=== PATIENT | female | born 1940 | race Caucasian/White ===

== ENCOUNTER 2016-12-12 12:00 | Emergency (ER) | payer OTHER ==
[2016-12-12 12:04] VITALS: BMI 22.8
--- NOTE | 2016-12-12 12:14 | DR.CP ---
HPI - Time Seen Time seen: 12:14 - PCP Primary Care Physician: EFRAIN - Complaint Chief Complaint Doctor Comments: Patient admits to the ED with complaint of intermittent left sided chest pain for 3-4 days with a pain level of 3-4. She also admits to epigastric pain burning in nature radiating to the back for one week. She denies any diaphoresis or dyspnea. She admits to four vessel by pass surgery twenty years ago. Her physical stamina has not changed. Chief Complaint:: INTERMITTENT CHEST PAIN X 3 DAYS BUT PAIN HAS BEEN CONSTANT SINCE LAST NIGHT. PT. STATES THE PAIN IS ON THE LEFT SIDE OF THE CHEST AND RADIATES THROUGH TO BACK, UNDER LEFT ARM, AND DOWN LEFT ARM. - Source History Provided: Patient - Mode of Arrival Mode of Arrival: Ambulatory - Timing Onset of Chief Complaint: 12/09/16 PMH - PMH Past Medical History: Yes Past Medical History: Coronary Artery Disease, Hypertension Past Surgical History: Yes Surgical History: CABG/Valve Surgery, Hysterectomy, Ortho Surgery, Other Past Surgical History Comment: RIGHT BREAST X 3 - Family History History of Family Medical Conditions: No - Social History Does patient currently use any type of tobacco product: No Have you used tobacco products in the last 12 months: No Type of Tobacco Use: None Does any household member use tobacco: No Alcohol Use: None Do you use any recreational Drugs:: No Lives With: Spouse Lives Where: Home - infectious screening In the last 2 months have you had wt loss of >10#?: NO Have you had fever, night sweats or hemotysis?: No Have you traveled outside the country in the last 6 months?: No Isolation: Standard ROS - Review of Systems Constitutional: No Symptoms Reported Eyes: No Symptoms Reported ENTM: No Symptoms Reported Respiratoy: No Symptoms Reported Cardiovascular: Chest Pain (lest side w/o radiating ) Gastrointestinal/Abdominal: No Symptoms Reported Genitourinary: No Symptoms Reported Neurological: No Symptoms Reported Musculoskeletal: No Symptoms Reported Integumentary: No Symptoms Reported Hematologic/Lymphatic: No Symptoms Reported Endocrine: No Symptoms Reported Psychiatric: No Symptoms Reported All Other Systems: Reviewed and Negative PE - Vitals Vitals: Temperature 98.8 F Pulse Rate 59 Respiratory Rate 16 Blood Pressure 159/69 O2 Sat by Pulse Oximetry 98 - General Limitations: No Limitations General Appearance: Alert, In No Apparent Distress - Head Head Exam: Normal Inspection, Atraumatic - Eyes Eye exam: Normal Appearance, PERRL, EOMI - ENT ENT Exam: Normal Exam, Normal Oropharynx - Chest Chest Inspection: Normal Inspection, Symmetric Chest Wall Rise - Respiratory Respiratory Exam: Normal Lung Sounds Bilat Respiratory Exam: Bilateral Clear to Auscultation - Cardiovascular Cardiovascular Exam: Regular Rate, Bradycardia Pulse: Normal, Radial, Femoral Edema: Normal - Abdominal Exam Abdominal Exam: Normal Inspection Abdominal Tenderness: negative: RUQ, RLQ, LUQ, LLQ, Epigastrium, Suprapubic, Diffuse, Mild, Moderate, Severe, Other - Extremities Extremities Exam: Normal Inspection, Full ROM - Neurologic Neurological Exam: Alert, Oriented X3, CN II-XII Intact - Psychiatric Psychiatric Exam: Normal Affect, Normal Mood - Skin Skin Exam: Warm, Dry, Intact Course - Reevaluation 1st: Unchanged ROR - Labs Reviewed Result Diagrams: 12/12/16 12:36 12/12/16 12:36 Laboratory: WBC 4.5 X10^3/uL (3.6-10.0) 12/12/16 12:36 RBC 4.19 X10^6/uL (3.5-5.4) 12/12/16 12:36 Hgb 12.8 g/dL (12.0-16.0) 12/12/16 12:36 Hct 38.7 % (36.0-47.0) 12/12/16 12:36 MCV 92.4 fL (80.0-100.0) 12/12/16 12:36 MCH 30.5 pg (27.0-34.0) 12/12/16 12:36 MCHC 33.0 g/dL (33.0-35.0) 12/12/16 12:36 RDW 13.3 % (11.6-16.5) 12/12/16 12:36 Plt Count 185 X10^3/uL (150.0-450.0) 12/12/16 12:36 MPV 7.1 fL (7.4-11.0) L 12/12/16 12:36 Neut % 56.9 % (42.0-75.0) 12/12/16 12:36 Lymph % 26.2 % (21.0-51.0) 12/12/16 12:36 [place] % 12.1 % (0.0-13.0) 12/12/16 12:36 Eos % 4.1 % (0.9-2.9) H 12/12/16 12:36 Baso % 0.7 % (0.2-1.0) 12/12/16 12:36 Neut # 2.6 x10^3/uL (2.2-4.8) 12/12/16 12:36 Lymph # 1.2 X10^3/uL (1.3-2.9) L 12/12/16 12:36 [place] # 0.5 x10^3/uL (0.3-0.8) 12/12/16 12:36 Eos # 0.2 x10^3/uL (0.0-0.2) 12/12/16 12:36 Baso # 0.0 X10^3/uL (0.0-0.1) 12/12/16 12:36 Absolute Nucleated RBC 0.0 /100WBC 12/12/16 12:36 INR Target Range - 12/12/16 12:36 INR 1.00 (0.8-1.3) 12/12/16 12:36 PTT 27.9 SECONDS (22.9-36.5) 12/12/16 12:36 PTT Comment - 12/12/16 12:36 Sodium 143 mmol/L (136-145) 12/12/16 12:36 Corrected Sodium TNP 12/12/16 12:36 Potassium 4.1 mmol/L (3.5-5.1) 12/12/16 12:36 Chloride 108 mmol/L (98-107) H 12/12/16 12:36 Carbon Dioxide 28.0 mmol/L (21-32) 12/12/16 12:36 BUN 13 mg/dL (7-18) 12/12/16 12:36 Creatinine 1.10 mg/dL (0.55-1.02) H 12/12/16 12:36 Est GFR (MDRD) Af Amer > 60 (>60) 12/12/16 12:36 Est GFR (MDRD) Non-Af 51 (>60) L 12/12/16 12:36 Glucose 93 mg/dL (65-99) 12/12/16 12:36 Calcium 8.8 mg/dL (8.5-10.1) 12/12/16 12:36 Corrected Calcium TNP 12/12/16 12:36 Phosphorus 4.1 mg/dL (2.6-4.7) 12/12/16 12:36 Magnesium 1.9 mg/dL (1.7-2.9) 12/12/16 12:36 Total Bilirubin 0.20 mg/dL (0.2-1.0) 12/12/16 12:36 AST 21 Units/L (15-37) 12/12/16 12:36 ALT 27 Units/L (12-78) 12/12/16 12:36 Alkaline Phosphatase 63 Units/L (46-116) 12/12/16 12:36 Creatine Kinase 117 Units/L (26-192) 12/12/16 12:36 CK-MB (CK-2) 2.2 ng/mL (0-4.0) 12/12/16 12:36 CK/CKMB % Calc 1.9 % (<4) 12/12/16 12:36 Troponin I < 0.02 ng/mL (0-1.5) 12/12/16 12:36 Total Protein 7.3 g/dL (6.4-8.2) 12/12/16 12:36 Albumin 3.7 g/dL (3.4-5.0) 12/12/16 12:36 Globulin 3.6 g/dL (2.5-4.5) 12/12/16 12:36 Albumin/Globulin Ratio 1.0 Ratio (1.1-2.1) L 12/12/16 12:36 Amylase 44 Units/L (25-115) 12/12/16 12:36 Lipase 209 Units/L (73-393) 12/12/16 12:36 H. pylori IgG Antibody Negative (NEGATIVE) 12/12/16 12:36 - XRAY XRAY Interpreted by: Radiologist (No acute cardiopulmonary abnormality) - Diagnosis Discharge Problem: Chest pain, rule out acute myocardial infarction - Discharge Plan Condition: Stable - Follow ups/Referrals Follow ups/Referrals: Bolivar Sykes [Primary Care Provider] - 3 days - Instructions
--- NOTE | 2016-12-12 12:39 | RAD ---
HISTORY: Chest pain Study: Single view chest Comparison: Noted Findings: Sternotomy changes are noted. There are calcifications at the aortic knob. The lungs are clear witho ut consolidation, effusion or pneumothorax. The cardiac and mediastinal contours are within normal l imits. The soft tissues are unremarkable. IMPRESSION: 1. No acute cardiopulmonary abnormality. Reported By:
[2016-12-12 12:43] LABS: BASOPHILS % (AUTO) 0.7 % (0.2-1.0); EOSINOPHILS # (AUTO) 0.2 x10^3/uL (0.0-0.2); EOSINOPHILS % (AUTO) 4.1 % (0.9-2.9); HEMATOCRIT 38.7 % (36.0-47.0); HEMOGLOBIN 12.8 g/dL (12.0-16.0); LYMPHOCYTES # (AUTO) 1.2 X10^3/uL (1.3-2.9); LYMPHOCYTES % (AUTO) 26.2 % (21.0-51.0); MEAN CORPUSCULAR HEMOGLOBIN 30.5 pg (27.0-34.0); MEAN CORPUSCULAR VOLUME 92.4 fL (80.0-100.0); MEAN PLATELET VOLUME 7.1 fL (7.4-11.0); MONOCYTES # (AUTO) 0.5 x10^3/uL (0.3-0.8); MONOCYTES % (AUTO) 12.1 % (0.0-13.0); NEUTROPHILS # (AUTO) 2.6 x10^3/uL (2.2-4.8); NEUTROPHILS % (AUTO) 56.9 % (42.0-75.0); PLATELET COUNT 185 X10^3/uL (150.0-450.0); RED BLOOD COUNT 4.19 X10^6/uL (3.5-5.4); RED CELL DISTRIBUTION WIDTH 13.3 % (11.6-16.5); WHITE BLOOD COUNT 4.5 X10^3/uL (3.6-10.0)
[2016-12-12 12:58] LABS: BLOOD UREA NITROGEN 13 mg/dL (7-18); CALCIUM 8.8 mg/dL (8.5-10.1); CHLORIDE 108 mmol/L (98-107); GLUCOSE 93 mg/dL (65-99); SODIUM 143 mmol/L (136-145); TROPONIN I < 0.02 ng/mL (0-1.5); eGFR BLACK RACES > 60 (>60); eGFR NON BLACK RACES 51 (>60)
[2016-12-12] MEDS ORDERED: NS 1000 ML 1,000 ML IV SCH (13:00)
[2016-12-12 13:04] LABS: ALANINE AMINOTRANSFERASE 27 Units/L (12-78); ALBUMIN 3.7 g/dL (3.4-5.0); ALKALINE PHOSPHATASE 63 Units/L (46-116); AMYLASE 44 Units/L (25-115); ASPARTATE AMINO TRANSFERASE 21 Units/L (15-37); CKMB % 1.9 % (<4); CREATINE KINASE 117 Units/L (26-192); CREATINE KINASE MB 2.2 ng/mL (0-4.0); LIPASE 209 Units/L (73-393); MAGNESIUM 1.9 mg/dL (1.7-2.9); PHOSPHORUS 4.1 mg/dL (2.6-4.7); TOTAL PROTEIN 7.3 g/dL (6.4-8.2)
[2016-12-12 13:16] LABS: BILIRUBIN,URINE NEGATIVE (NEGATIVE); BLOOD/HEMOGLOBIN,URINE NEGATIVE (NEGATIVE); GLUCOSE, URINE NEGATIVE (NEGATIVE); KETONES,URINE NEGATIVE (NEGATIVE); LEUKOCYTE ESTERASE ,URINE NEGATIVE (NEGATIVE); NITRITES,URINE NEGATIVE (NEGATIVE); PROTEIN,URINE NEGATIVE (NEGATIVE); UROBILINOGEN,URINE NORMAL (NORMAL)
[2016-12-12 13:25] LABS: APPEARANCE,URINE CLEAR (CLEAR); BACTERIA,URINE NEGATIVE /HPF (NEGATIVE); COLOR,URINE YELLOW (YELLOW); RBC,URINE 0-2 /HPF (NEGATIVE); SQUAMOUS EPITHELIAL CELL,UR RARE /HPF (NEGATIVE)
[2016-12-12] MEDS ORDERED: MORPHINE SULFATE INJ 4 MG IVP PRN (14:23)
[2016-12-12] MEDS ORDERED: ZOFRAN INJ 4 MG VIAL IVP PRN (14:23)
[2016-12-12] MEDS: NS 1000 ML 1,000 ML IV SCH (15:25)
[2016-12-12] MEDS: LOTENSIN TAB 10 MG PO SCH (15:26)
[2016-12-12] MEDS: NORVASC TAB 5 MG PO SCH (15:26)
[2016-12-12 18:13] LABS: CKMB % 1.8 % (<4); CREATINE KINASE 121 Units/L (26-192); CREATINE KINASE MB 2.2 ng/mL (0-4.0); TROPONIN I < 0.02 ng/mL (0-1.5)
[2016-12-13 01:16] LABS: CKMB % 1.9 % (<4); CREATINE KINASE 100 Units/L (26-192); CREATINE KINASE MB 1.9 ng/mL (0-4.0); TROPONIN I < 0.02 ng/mL (0-1.5)
[2016-12-13] MEDS: NS 1000 ML 1,000 ML IV SCH ×2 (04:08→18:07)
[2016-12-13 06:31] LABS: BASOPHILS % (AUTO) 0.7 % (0.2-1.0); EOSINOPHILS # (AUTO) 0.2 x10^3/uL (0.0-0.2); EOSINOPHILS % (AUTO) 5.1 % (0.9-2.9); HEMATOCRIT 37.2 % (36.0-47.0); HEMOGLOBIN 12.5 g/dL (12.0-16.0); LYMPHOCYTES # (AUTO) 1.5 X10^3/uL (1.3-2.9); LYMPHOCYTES % (AUTO) 34.7 % (21.0-51.0); MEAN CORPUSCULAR HEMOGLOBIN 30.6 pg (27.0-34.0); MEAN CORPUSCULAR HGB CONC 33.7 g/dL (33.0-35.0); MEAN CORPUSCULAR VOLUME 90.9 fL (80.0-100.0); MEAN PLATELET VOLUME 7.6 fL (7.4-11.0); MONOCYTES # (AUTO) 0.5 x10^3/uL (0.3-0.8); MONOCYTES % (AUTO) 12.1 % (0.0-13.0); NEUTROPHILS # (AUTO) 2.1 x10^3/uL (2.2-4.8); NEUTROPHILS % (AUTO) 47.4 % (42.0-75.0); PLATELET COUNT 181 X10^3/uL (150.0-450.0); RED BLOOD COUNT 4.09 X10^6/uL (3.5-5.4); RED CELL DISTRIBUTION WIDTH 13.4 % (11.6-16.5); WHITE BLOOD COUNT 4.4 X10^3/uL (3.6-10.0)
[2016-12-13 06:47] LABS: ALANINE AMINOTRANSFERASE 25 Units/L (12-78); ALBUMIN 3.5 g/dL (3.4-5.0); ALKALINE PHOSPHATASE 58 Units/L (46-116); ASPARTATE AMINO TRANSFERASE 23 Units/L (15-37); BLOOD UREA NITROGEN 13 mg/dL (7-18); CALCIUM 8.6 mg/dL (8.5-10.1); CARBON DIOXIDE 24.8 mmol/L (21-32); CHLORIDE 108 mmol/L (98-107); CHOL/HDL RATIO 7.9 (0.0-5.0); CHOLESTEROL 307 mg/dL (0-200); CREATININE 0.88 mg/dL (0.55-1.02); GLUCOSE 77 mg/dL (65-99); HDL CHOLESTEROL 39 mg/dL (40-60); SODIUM 144 mmol/L (136-145); TOTAL PROTEIN 6.7 g/dL (6.4-8.2); TRIGLYCERIDES 187 mg/dL (0-150); eGFR BLACK RACES > 60 (>60); eGFR NON BLACK RACES > 60 (>60)
--- NOTE | 2016-12-13 07:58 | RAD ---
Chest AP portable Indication: Chest pain. Comparison: December 12, 2016. Findings: There is no pneumothorax or effusion. No consolidation seen. Sternotomy wires noted. COPD suggested. Impression: No new acute chest process. COPD change and post CABG change. Reported By:
[2016-12-13] MEDS ORDERED: [UNRECOGNIZED DRUG - OTHER] PO SCH (09:00)
[2016-12-13] MEDS: EFFEXOR TAB 75 MG (BID DOSING) PO SCH (09:08)
[2016-12-13] MEDS: KLONOPIN TAB 1 MG PO SCH (09:08)
[2016-12-13] MEDS: NORVASC TAB 5 MG PO SCH (09:09)
[2016-12-13] MEDS: MYSOLINE PO SCH (09:09)
[2016-12-13] MEDS: LOTENSIN TAB 10 MG PO SCH (09:09)
[2016-12-13] MEDS ORDERED: TYLENOL 325 MG TAB PO PRN (10:25)
[2016-12-13 13:52] LABS: CKMB % 1.8 % (<4); CREATINE KINASE 88 Units/L (26-192); CREATINE KINASE MB 1.6 ng/mL (0-4.0); TROPONIN I < 0.02 ng/mL (0-1.5)
--- NOTE | 2016-12-13 19:06 | DR.H&P ---
H&P - History & Physical for Day of: H&P Date: 12/12/16 - Chief Complaint Chief Complaint: CHEST PAIN - Allergies Allergies/Adverse Reactions: Allergies Allergy/AdvReac Type Severity Reaction Status Date / Time No Known Drug Allergy Allergy Verified 12/12/16 12:06 - History of Present Illness History of Present Illness: THIS IS A 76 YEAR OLD FEMALE, WHO IS A PATIENT OF OURS. SHE PRESENTS TO THE EMERGENCY ROOM WITH COMPLAINTS OF LEFT-SIDED CHEST PAIN FOR 3-4 DAYS. PATIENT REPORTS PAIN IS CONSTANT AND SHE RATES PAIN A 3-4 ON A 1-TO-10 PAIN SCALE. SHE REPORTS EPIGASTRIC PAIN WITH BURNING SENSATION RADIATING TO HER BACK AND LEFT ARM. SHE DENIES DIAPHORESIS OR DYSPNEA. SHE REPORTS QUADRUPLE BYPASS TWENTY YEARS AGO. LABS OBTAINED. CBC WNL. CMP WNL EXCEPT: CHL 108, CREAT 1.10, GFR 51. CARDIAC ENZYMES WNL. EKG: SINUS RHYTHM, RATE 57. CHEST XRAY REPORTS NO ACUTE CARIOPULMONARY ABNORMALITY. WE WILL ADMIT PATIENT FOR FURTHER TREATMENT AND EVALUATION. WE WILL MONITOR PATIENT ON TELEMETRY, OBTAIN SERIAL CARDIAC ENZYMES AND EKG'S. - Past Medical History Past Medical History: Coronary Artery Disease, Hypertension, Hypothyroidism, [place] Additional Medical History: Previous Blood Transfusion - Past Surgical History Surgical History: CABG/Valve Surgery, Hysterectomy, Ortho Surgery Additional Surgical History: QUADRUPLE BYPASS - Family History Family Medical History: Cancer - Social History Does patient currently use any type of tobacco product: No Have you used tobacco products in the last 12 months: No Type of Tobacco Use: None Does any household member use tobacco: No Alcohol Use: None Drug Use: None - Medications Home Medications: Amlodipine Besylate-Benazepril [Amlodipine Besylate/Benaz 5-20 mg] 1 cap PO DAILY 11/02/13 Clonazepam [KLONOPIN TAB 1 MG *] 1 mg PO DAILY 11/02/13 Labetalol HCl [NORMODYNE 200 MG *] 200 mg PO BID 11/02/13 Primidone [MYSOLINE 50 MG *] 50 mg PO DAILY 11/02/13 Venlafaxine HCl [Venlafaxine HCl (plain)] 75 mg PO DAILY 11/02/13 - Review of Systems Constitutional: Weakness, Malaise Eyes: No Symptoms Reported. denies: Pain, Vision Change, Conjunctivae Inflammation, Eyelid Inflammation, Redness ENT: No Symptoms Reported. denies: Ear Pain, Ear Discharge, Nose Pain, Nose Discharge, Nose Congestion, Mouth Pain, Mouth Swelling, Throat Pain, Throat Swelling Respiratory: No Symptoms Reported. denies: Cough, Shortness of Breath, Hemoptysis, SOB with Excertion, Pleuritic Pain, Sputum, Wheezing Cardiovascular: Chest Pain. denies: Palpitations, Orthopnea, Paroxysmal Noc. Dyspnea, Edema, Light Headedness Gastrointestinal: No Symptoms Reported. denies: Nausea, Vomiting, Abdominal Pain, Diarrhea, Constipation, Melena, Hematochezia Genitourinary: No Symptoms Reported. denies: Dysuria, Frequency, Incontinence, Hematuria, Retention Musculoskeletal: Shoulder Pain (Left), Arm Pain (Left), Back Pain Skin: No Symptoms Reported. denies: Rash, Lesions, Jaundice, Bruising, Wound, Ecchymosis Neurological: No Symptoms Reported. denies: Weakness, Numbness, Incoordination , Change in Speech, Confusion, Seizures - Physical Exam Vital Signs: Temperature 98.2 F Pulse Rate [Right Brachial] 57 Respiratory Rate 18 Blood Pressure [Right Arm] 137/60 O2 Sat by Pulse Oximetry 93 Oriented: Normal, Time, Person, Place Eyes: Normal. negative: Blurred Vision, Diplopia, Discharge, Pain, Redness, Photophobia Ear: Normal. negative: Swelling, Ecchymosis, Hemotypanum, Abrasion, Laceration Nose: Normal. negative: Injected, Discharge, Blood Throat: Normal. negative: Tonsillar Hypertrophy, Red, Exudate Respiratory: Clear Throughout Cardiovascular: Normal. negative: Murmur, Edema : Normal. negative: Dysuria, Hematuria, Frequency, Discharge, Bleeding, Auscultation: Bowel Sounds: Normal. negative: Bruit Palpation: Normal. negative: Spleen Enlarged, Liver Enlarged, Mass Pulsatile Tenderness: Normal. negative: Rebound, Guarding, Rigidity Skin: Normal. negative: Diaphoresis, Wound, Bruising, Ecchymosis Musculoskeletal: Normal Psychiatric: Normal Mood Description: Calm, Appropriate Affect: Normal Speech Pattern: Clear, Appropriate - Assessment/Plan (1) Chest pain, rule out acute myocardial infarction Status: Acute Plan: ADMIT PATIENT, MONITOR ON TELEMETRY, OBTAIN SERIAL CARDIAC ENZYMES AND EKG 'S, SUPPLEMENTAL OXYGEN. 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
[2016-12-13 20:10] LABS: CKMB % 2.3 % (<4); CREATINE KINASE 78 Units/L (26-192); CREATINE KINASE MB 1.8 ng/mL (0-4.0); TROPONIN I < 0.02 ng/mL (0-1.5)
--- NOTE | 2016-12-13 22:46 | PCM.PROG ---
Progress Note - Progress Note for Day of Date: 12/13/16 - Subjective Subjective: PATIENT CONTINUES TO REPORT CHEST DISCOMFORT THAT RADIATES TO LEFT ARM AND BACK. PATIENT REPORTS CHEST PAIN IS WORSE WITH DEEP INSPIRATION. SHE WAS NOTED WITH BRADYCARDIA ON ADMISSION AND SHE REPORTS HEART RATE IS CHRONICALLY IN THE 50'S. LABETALOL HAS BEEN HELD. BLOOD PRESSURE IS 142/67, PULSE 51. PATIENT DENIES SHORTNESS OF BREATH, DIZZINESS, FATIGUE. CBC WNL. CMP WNL EXCEPT: CHL 108. CARDIAC ENZYMES WNL. EKG: SINUS RHYTHM, RATE 55. FLP ABNORMALS: TRIGLYCERIDES 187, CHOL 307, LDL CHOL 231, CHOL/HDL RATIO 7.9. WE WILL CONTINUE TO MONITOR ON TELEMETRY, CONTINUE CARDIAC ENZYMES AND EKG'S. WE WILL FOLLOW UP IN AM WITH LABS. - Past Medical Family Social History Past Med/Fam/Surg Hx: No changes since H&P Allergies: Allergies No Known Drug Allergy Allergy (Verified 12/12/16 12:06) - Review of Systems ROS: No change since H&P - Vital Signs and I&O's Vital Signs: Temperature 98.2 F Pulse Rate [Right Brachial] 57 Respiratory Rate 18 Blood Pressure [Right Arm] 137/60 O2 Sat by Pulse Oximetry 93 Intake and Output: Intake & Output 12/11/16 12/12/16 12/13/16 12/14/16 11:59 11:59 11:59 11:59 Intake Total 1339 1080 Balance 1339 1080 - Physical Exam Oriented: Normal, Time, Person, Place Eyes: Normal. negative: Blurred Vision, Diplopia, Discharge, Pain, Redness, Photophobia Ear: Normal. negative: Swelling, Ecchymosis, Hemotypanum, Abrasion, Laceration Nose: Normal. negative: Injected, Discharge, Blood Throat: Normal. negative: Tonsillar Hypertrophy, Red, Exudate Respiratory: Normal Cardiovascular: Normal. negative: Murmur, Edema : Normal. negative: Dysuria, Hematuria, Frequency, Discharge, Bleeding, Auscultation: Bowel Sounds: Normal. negative: Bruit Palpation: Normal. negative: Spleen Enlarged, Liver Enlarged, Mass Pulsatile Tenderness: Normal. negative: Rebound, Guarding, Rigidity Skin: Normal. negative: Diaphoresis, Wound, Bruising, Ecchymosis Musculoskeletal: Normal Psychiatric: Normal Mood Description: Calm, Appropriate Affect: Normal Speech Pattern: Clear, Appropriate - Laboratory and Diagnostics Result Diagrams: 12/13/16 03:30 12/13/16 03:30 Labs: Laboratory WBC 4.4 X10^3/uL (3.6-10.0) 12/13/16 03:30 RBC 4.09 X10^6/uL (3.5-5.4) 12/13/16 03:30 Hgb 12.5 g/dL (12.0-16.0) 12/13/16 03:30 Hct 37.2 % (36.0-47.0) 12/13/16 03:30 MCV 90.9 fL (80.0-100.0) 12/13/16 03:30 MCH 30.6 pg (27.0-34.0) 12/13/16 03:30 MCHC 33.7 g/dL (33.0-35.0) 12/13/16 03:30 RDW 13.4 % (11.6-16.5) 12/13/16 03:30 Plt Count 181 X10^3/uL (150.0-450.0) 12/13/16 03:30 MPV 7.6 fL (7.4-11.0) 12/13/16 03:30 Neut % 47.4 % (42.0-75.0) 12/13/16 03:30 Lymph % 34.7 % (21.0-51.0) 12/13/16 03:30 [place] % 12.1 % (0.0-13.0) 12/13/16 03:30 Eos % 5.1 % (0.9-2.9) H 12/13/16 03:30 Baso % 0.7 % (0.2-1.0) 12/13/16 03:30 Neut # 2.1 x10^3/uL (2.2-4.8) L 12/13/16 03:30 Lymph # 1.5 X10^3/uL (1.3-2.9) 12/13/16 03:30 [place] # 0.5 x10^3/uL (0.3-0.8) 12/13/16 03:30 Eos # 0.2 x10^3/uL (0.0-0.2) 12/13/16 03:30 Baso # 0.0 X10^3/uL (0.0-0.1) 12/13/16 03:30 Absolute Nucleated RBC 0.0 /100WBC 12/13/16 03:30 INR Target Range - 12/12/16 12:36 INR 1.00 (0.8-1.3) 12/12/16 12:36 PTT 27.9 SECONDS (22.9-36.5) 12/12/16 12:36 PTT Comment - 12/12/16 12:36 Sodium 144 mmol/L (136-145) 12/13/16 03:30 Corrected Sodium TNP 12/13/16 03:30 Potassium 3.7 mmol/L (3.5-5.1) 12/13/16 03:30 Chloride 108 mmol/L (98-107) H 12/13/16 03:30 Carbon Dioxide 24.8 mmol/L (21-32) 12/13/16 03:30 BUN 13 mg/dL (7-18) 12/13/16 03:30 Creatinine 0.88 mg/dL (0.55-1.02) 12/13/16 03:30 Est GFR (MDRD) Af Amer > 60 (>60) 12/13/16 03:30 Est GFR (MDRD) Non-Af > 60 (>60) 12/13/16 03:30 Glucose 77 mg/dL (65-99) 12/13/16 03:30 Calcium 8.6 mg/dL (8.5-10.1) 12/13/16 03:30 Corrected Calcium TNP 12/13/16 03:30 Phosphorus 4.1 mg/dL (2.6-4.7) 12/12/16 12:36 Magnesium 1.9 mg/dL (1.7-2.9) 12/12/16 12:36 Total Bilirubin 0.20 mg/dL (0.2-1.0) 12/13/16 03:30 AST 23 Units/L (15-37) 12/13/16 03:30 ALT 25 Units/L (12-78) 12/13/16 03:30 Alkaline Phosphatase 58 Units/L (46-116) 12/13/16 03:30 Creatine Kinase 78 Units/L (26-192) 12/13/16 19:15 CK-MB (CK-2) 1.8 ng/mL (0-4.0) 12/13/16 19:15 CK/CKMB % Calc 2.3 % (<4) 12/13/16 19:15 Troponin I < 0.02 ng/mL (0-1.5) 12/13/16 19:15 Total Protein 6.7 g/dL (6.4-8.2) 12/13/16 03:30 Albumin 3.5 g/dL (3.4-5.0) 12/13/16 03:30 Globulin 3.2 g/dL (2.5-4.5) 12/13/16 03:30 Albumin/Globulin Ratio 1.1 Ratio (1.1-2.1) 12/13/16 03:30 Triglycerides 187 mg/dL (0-150) H 12/13/16 03:30 Cholesterol 307 mg/dL (0-200) H 12/13/16 03:30 LDL Cholesterol, Calc 231 mg/dL (0-100) H 12/13/16 03:30 HDL Cholesterol 39 mg/dL (40-60) L 12/13/16 03:30 Cholesterol/HDL Ratio 7.9 (0.0-5.0) H 12/13/16 03:30 Amylase 44 Units/L (25-115) 12/12/16 12:36 Lipase 209 Units/L (73-393) 12/12/16 12:36 Specimen Type Clean catch urine 12/12/16 13:02 Urine Color Yellow (YELLOW) 12/12/16 13:02 Urine Appearance Clear (CLEAR) 12/12/16 13:02 Urine pH 6.0 (5.0 - 8.0) 12/12/16 13:02 Ur Specific [place] 1.010 (1.000-1.030) 12/12/16 13:02 Urine Protein Negative (NEGATIVE) 12/12/16 13:02 Urine Glucose (UA) Negative (NEGATIVE) 12/12/16 13:02 Urine Ketones Negative (NEGATIVE) 12/12/16 13:02 Urine Occult Blood Negative (NEGATIVE) 12/12/16 13:02 Urine Nitrite Negative (NEGATIVE) 12/12/16 13:02 Urine Bilirubin Negative (NEGATIVE) 12/12/16 13:02 Urine Urobilinogen Normal (NORMAL) 12/12/16 13:02 Ur Leukocyte Esterase Negative (NEGATIVE) 12/12/16 13:02 Urine RBC 0-2 /HPF (NEGATIVE) 12/12/16 13:02 Urine WBC 0-3 /HPF (NEGATIVE) 12/12/16 13:02 Ur Squamous Epith Cells Rare /HPF (NEGATIVE) 12/12/16 13:02 Urine Bacteria Negative /HPF (NEGATIVE) 12/12/16 13:02 Ur Culture Indicated? No/not indicated 12/12/16 13:02 H. pylori IgG Antibody Negative (NEGATIVE) 12/12/16 12:36 - Plan (1) Chest pain, rule out acute myocardial infarction Status: Acute Plan: CONTINUE TO MONITOR ON TELEMETRY, OBTAIN SERIAL CARDIAC ENZYMES AND EKG'S , SUPPLEMENTAL OXYGEN. (2) History of angina Status: Chronic (3) History of quadruple bypass Status: Chronic (4) Hx of myocardial infarction Status: Chronic (5) Hypothyroidism Status: Chronic Qualifiers: Hypothyroidism type: acquired Qualified Code(s): E03.9 - Hypothyroidism, unspecified (6) Hx of bilateral cataract extraction Status: Chronic
[2016-12-14 01:29] LABS: CKMB % 1.9 % (<4); CREATINE KINASE 78 Units/L (26-192); CREATINE KINASE MB 1.5 ng/mL (0-4.0); TROPONIN I < 0.02 ng/mL (0-1.5)
[2016-12-14] MEDS: NS 1000 ML 1,000 ML IV SCH ×2 (05:26→21:29)
[2016-12-14 06:22] LABS: ALANINE AMINOTRANSFERASE 24 Units/L (12-78); ALBUMIN 3.2 g/dL (3.4-5.0); ALKALINE PHOSPHATASE 54 Units/L (46-116); ASPARTATE AMINO TRANSFERASE 19 Units/L (15-37); BLOOD UREA NITROGEN 13 mg/dL (7-18); CALCIUM 8.5 mg/dL (8.5-10.1); CARBON DIOXIDE 28.4 mmol/L (21-32); CHLORIDE 108 mmol/L (98-107); COR CA(FOR HYPOALB) 9.1 mg/dL (8.5-10.1); CREATININE 0.93 mg/dL (0.55-1.02); GLUCOSE 84 mg/dL (65-99); SODIUM 144 mmol/L (136-145); TOTAL PROTEIN 6.2 g/dL (6.4-8.2); eGFR BLACK RACES > 60 (>60); eGFR NON BLACK RACES > 60 (>60)
[2016-12-14 06:23] LABS: BASOPHILS % (AUTO) 0.7 % (0.2-1.0); EOSINOPHILS # (AUTO) 0.2 x10^3/uL (0.0-0.2); EOSINOPHILS % (AUTO) 4.1 % (0.9-2.9); HEMATOCRIT 36.3 % (36.0-47.0); HEMOGLOBIN 12.5 g/dL (12.0-16.0); LYMPHOCYTES # (AUTO) 1.5 X10^3/uL (1.3-2.9); MEAN CORPUSCULAR HEMOGLOBIN 31.2 pg (27.0-34.0); MEAN CORPUSCULAR HGB CONC 34.4 g/dL (33.0-35.0); MEAN CORPUSCULAR VOLUME 90.9 fL (80.0-100.0); MEAN PLATELET VOLUME 7.3 fL (7.4-11.0); MONOCYTES # (AUTO) 0.6 x10^3/uL (0.3-0.8); NEUTROPHILS # (AUTO) 2.1 x10^3/uL (2.2-4.8); NEUTROPHILS % (AUTO) 47.2 % (42.0-75.0); PLATELET COUNT 173 X10^3/uL (150.0-450.0); RED CELL DISTRIBUTION WIDTH 13.2 % (11.6-16.5); WHITE BLOOD COUNT 4.4 X10^3/uL (3.6-10.0)
[2016-12-14] MEDS: EFFEXOR TAB 75 MG (BID DOSING) PO SCH (09:39)
[2016-12-14] MEDS: MYSOLINE PO SCH (10:44)
[2016-12-14] MEDS: LOTENSIN TAB 10 MG PO SCH (10:44)
[2016-12-14] MEDS: KLONOPIN TAB 1 MG PO SCH (10:45)
[2016-12-14] MEDS: NORVASC TAB 5 MG PO SCH (10:45)
[2016-12-14] MEDS ORDERED: CRESTOR TAB 10 MG PO SCH (21:00)
[2016-12-14] MEDS: ASPIRIN EC 81 MG PO SCH (21:28)
[2016-12-15 06:25] LABS: ALANINE AMINOTRANSFERASE 23 Units/L (12-78); ALBUMIN 3.3 g/dL (3.4-5.0); ALKALINE PHOSPHATASE 55 Units/L (46-116); ASPARTATE AMINO TRANSFERASE 20 Units/L (15-37); BLOOD UREA NITROGEN 11 mg/dL (7-18); CALCIUM 8.7 mg/dL (8.5-10.1); CARBON DIOXIDE 26.6 mmol/L (21-32); CHLORIDE 109 mmol/L (98-107); COR CA(FOR HYPOALB) 9.3 mg/dL (8.5-10.1); CREATININE 0.89 mg/dL (0.55-1.02); GLUCOSE 82 mg/dL (65-99); SODIUM 143 mmol/L (136-145); TOTAL PROTEIN 6.4 g/dL (6.4-8.2); eGFR BLACK RACES > 60 (>60); eGFR NON BLACK RACES > 60 (>60)
[2016-12-15 06:53] LABS: BASOPHILS % (AUTO) 0.8 % (0.2-1.0); EOSINOPHILS # (AUTO) 0.2 x10^3/uL (0.0-0.2); EOSINOPHILS % (AUTO) 4.7 % (0.9-2.9); HEMATOCRIT 36.7 % (36.0-47.0); HEMOGLOBIN 12.2 g/dL (12.0-16.0); LYMPHOCYTES # (AUTO) 1.6 X10^3/uL (1.3-2.9); LYMPHOCYTES % (AUTO) 33.6 % (21.0-51.0); MEAN CORPUSCULAR HEMOGLOBIN 30.6 pg (27.0-34.0); MEAN CORPUSCULAR HGB CONC 33.3 g/dL (33.0-35.0); MEAN CORPUSCULAR VOLUME 91.9 fL (80.0-100.0); MEAN PLATELET VOLUME 7.8 fL (7.4-11.0); MONOCYTES # (AUTO) 0.7 x10^3/uL (0.3-0.8); MONOCYTES % (AUTO) 14.1 % (0.0-13.0); NEUTROPHILS # (AUTO) 2.3 x10^3/uL (2.2-4.8); NEUTROPHILS % (AUTO) 46.8 % (42.0-75.0); PLATELET COUNT 174 X10^3/uL (150.0-450.0); RED BLOOD COUNT 3.99 X10^6/uL (3.5-5.4); RED CELL DISTRIBUTION WIDTH 13.1 % (11.6-16.5); WHITE BLOOD COUNT 4.9 X10^3/uL (3.6-10.0)
[2016-12-15] MEDS: KLONOPIN TAB 1 MG PO SCH (09:38)
[2016-12-15] MEDS: EFFEXOR TAB 75 MG (BID DOSING) PO SCH (09:39)
[2016-12-15] MEDS: MYSOLINE PO SCH (09:40)
[2016-12-15] MEDS: LOTENSIN TAB 10 MG PO SCH (09:40)
[2016-12-15] MEDS: NORVASC TAB 5 MG PO SCH (09:40)
[2016-12-15] MEDS: ASPIRIN EC 81 MG PO SCH (09:40)
[2016-12-15 12:57] VITALS: BP 152/70
== END 2016-12-15 14:00 | disposition home or self-care (01) ==
LOC: ER 12:11 → MED/SURG 14:25
PROVIDERS: ADMIT Internal Medicine; ATTEND Internal Medicine
DX: R07.89 Other chest pain (principal); R00.1 Bradycardia, unspecified; R94.31 Abnormal electrocardiogram [ECG] [EKG]; I25.10 Atherosclerotic heart disease of native coronary artery without angina pectoris; I10 Essential (primary) hypertension; E03.8 Other specified hypothyroidism; R06.02 Shortness of breath; E78.2 Mixed hyperlipidemia; Z86.79 Personal history of other diseases of the circulatory system; I25.2 Old myocardial infarction; Z95.1 Presence of aortocoronary bypass graft; Z79.899 Other long term (current) drug therapy
CPT/HCPCS: 36415; 71010; 80053; 80061; 81001; 82150; 82550; 82553; 83690; 83735; 84100; 84484; 85025; 85610; 85730; 86677; 93005; 94760; 96365; 99284; A4216; A4222; G0378

== ENCOUNTER → 2018-01-06 | Outpatient (CLI) | payer OTHER ==
[~2018-01-06] MED LIST: NS 100 ML IV 100 ML IV ONE
[2018-01-06 09:54] LABS: CREATININE 1.1 mg/dL (0.55-1.02)
--- NOTE | 2018-01-06 12:59 | CT ---
Exam: CT of the abdomen/pelvis with contrast History: 77-year-old female with lower abdominal and right flank pain Comparison: None Technique: Axial imaging was performed through the abdomen and pelvis following administration of int ravenous contrast. Subsequent coronal and sagittal reformations were generated. Automated exposure co ntrol techniques were used with this exam. Findings: Visualized aspect of the lower lungs are clear. Mild fatty changes are seen in the liver. Multiple cysts are noted in both hepatic lobes. The largest of these is located in the left hepatic lobe and measures 2.3 cm in diameter. Multiple small radiopa que gallstones are identified in the gallbladder. No intra or extrahepatic biliary ductal dilatation. The spleen, pancreas, adrenal glands, and both kidneys are normal. Edematous changes are seen in the wall of the gastric antrum and proximal duodenum. These findings may reflect underlying gastritis/du odenitis. Scattered diverticular are present in the distal descending and sigmoid colon. However no d efinite findings to suggest acute diverticulitis. No sign of appendicitis. Large and small bowel demo nstrate no evidence of obstruction. Evaluation the pelvis demonstrates normal-appearing bladder. Patient is status post hysterectomy. No intra-abdominal or pelvic masses, lymphadenopathy, or ascites. Diffuse atherosclerotic changes are no julián along the course of the abdominal aorta and common iliac arteries bilaterally. Calcified plaque i s present at the origin of the mesenteric and renal arteries as well. 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 Multilevel degenerative changes are prese nt as well. No locally aggressive bony lesions are seen on this exam. Impression: Edematous changes are present in the wall of the gastric antrum and proximal duodenum which may refle ct underlying inflammation. Nonetheless follow-up upper GI series or direct visualization is recommen ded, after symptoms subside, in order to exclude neoplastic process. Cholelithiasis. Multiple hepatic cysts. Diverticulosis involving the descending and sigmoid colon though without definite sign of acute diver ticulitis. Reported By:
--- NOTE | 2018-01-08 08:58 | MG ---
HISTORY: SCREENING Comparison: 09/20/2013 FINDINGS: Bilateral CC and MLO projections of the right and left breast were obtained. Heterogeneously dense f ibroglandular tissue is seen to be present. No significant architectural distortion, mass or cluster ed microcalcifications can be observed to suggest malignancy. No skin thickening or nipple retractio n is appreciated. No pathological lymphadenopathy can be identified. Benign-appearing calcification s scattered throughout the right and left breasts are observed. IMPRESSION: NO RADIOGRAPHIC EVIDENCE OF MALIGNANCY. ACR CATEGORY: 2 - benign findings. FOLLOW-UP EXAM 1 YEAR. Diagnostic CAD was utilized and reviewed. * 0 (ZERO) - ASSESSMENT INCOMPLETE; ADDITIONAL IMAGING IS NEEDED. * 1/1 (ONE) - NEGATIVE. * 2/II (TWO) - BENIGN FINDINGS. * 3/III (THREE) - PROBABLY BENIGN FINDING; SHORT INTERVAL FOLLOW-UP SUGGESTED. * 4/IV (FOUR) - SUSPICIOUS ABNORMALITY; BIOPSY SHOULD BE CONSIDERED. * 5/V - HIGHLY SUSPICIOUS OF MALIGNANCY; BIOPSY SHOULD BE PERFORMED. A NEGATIVE X-RAY REPORT SHOULD NOT DELAY BIOPSY IF A DOMINANT OR CLINICALLY SUSPICIOUS MASS IS PRESENT; 4 TO 8 PERCENT OF CANCERS ARE NOT IDENTIFIED BY X-RAY. A NEGA TIVE REPORT MAY REINFORCE THE CLINICAL IMPRESSION. ADENOSIS AND DENSE BREASTS MAY OBSCURE AN UNDERLY ING NEOPLASM. Reported By:
== END ==
LOC: RAD 09:08
PROVIDERS: ATTEND Internal Medicine
DX: Z12.31 Encounter for screening mammogram for malignant neoplasm of breast (principal); R14.0 Abdominal distension (gaseous); R10.32 Left lower quadrant pain
CPT/HCPCS: 36415; 74177; 77067; 82565; 84520; A4222

== ENCOUNTER 2019-06-22 12:00 | Observation (INO) ==
[2019-06-22 12:06] VITALS: BMI 21.9
[2019-06-22 12:26] LABS: EOSINOPHILS # (AUTO) 0.2 x10^3/uL (0.0-0.2); EOSINOPHILS % (AUTO) 4.6 % (0.9-2.9); HEMOGLOBIN 12.3 g/dL (12.0-16.0); LYMPHOCYTES # (AUTO) 1.1 X10^3/uL (1.3-2.9); LYMPHOCYTES % (AUTO) 28.4 % (21.0-51.0); MEAN CORPUSCULAR HEMOGLOBIN 31.8 pg (27.0-34.0); MEAN CORPUSCULAR HGB CONC 34.2 g/dL (33.0-35.0); MEAN PLATELET VOLUME 6.8 fL (7.4-11.0); MONOCYTES # (AUTO) 0.6 x10^3/uL (0.3-0.8); NEUTROPHILS # (AUTO) 1.9 x10^3/uL (2.2-4.8); PLATELET COUNT 188 X10^3/uL (150.0-450.0); RED BLOOD COUNT 3.87 X10^6/uL (3.5-5.4); RED CELL DISTRIBUTION WIDTH 13.6 % (11.6-16.5); WHITE BLOOD COUNT 3.8 X10^3/uL (3.6-10.0)
--- NOTE | 2019-06-22 12:40 | DR.CP ---
HPI Time Seen Time Seen by Provider: 06/22/19 12:29 PCP Primary Care Physician: DR. ZUNIGA HPI Comment HPI Comment: PATIENT IS 79YR OLD FEMALE HERE IN THE EMERGENCY ROOM WITH PRECORDIAL THROBBING CHEST PAIN, 5/10 RADIATING TO LEFT ARM AND LEFT BACK. PAIN STARTED 5 TO 6 HRS AGO. DENIES COUGH, CONGESTION, SOB, DYSURIA OR FEVER. NO NAUSEA OR VOMITING. HAVE HISTORY OF DYSLIPIDEMIA. Complaint Chief Complaint Doctor Comments: CHEST PAIN. Chief Complaint:: PT C/O AT 0700 SHE STARTED TO HAVE LEFT SIDE CP THAT RADAITES TO HER LEFT BACK AND LEFT ARM, AND ITS A 5 AND THROBBING, BR PT DENIES ANY SOB ,,BR Reviewed Nurses Notes Review: Yes Source History Provided: Patient Mode of Arrival Mode of Arrival: Ambulatory Timing Onset of Chief Complaint: 06/22/19 Came on: Suddenly Pain: Present Now Duration Duration: Hours Location Location of Chest Pain: Left and Chest Chest Pain Radiation Location: Left Jaw, Left Arm and Back Context Onset: With light exertion Cardiac Risk Factors: Hyperlipidemia and HTN PE Risk Factors: None History of: MA, Angina and Other (CABG IN THE PAST.) Quality Quality: Other (THROBBING PAIN.) Severity Severity: Moderate Modifying Factors Worsens: Movement Impoves: Rest Associated Signs and Symptoms Associated Signs and Symptoms: None PMH PMH Past Medical History: Yes Past Medical History: Coronary Artery Disease, Dyslipidemia, Hypertension and Hypothyroidism Past Surgical History: Yes Surgical History: CABG/Valve Surgery, Hysterectomy and Ortho Surgery Family History History of Family Medical Conditions: Yes Family Medical History: Cancer Social History Does patient currently use any type of tobacco product: No Have you used tobacco products in the last 12 months: No Type of Tobacco Use: None Does any household member use tobacco: No Alcohol Use: None Do you use any recreational Drugs:: No Lives With: Family Lives Where: Home infectious screening In the last 2 months have you had wt loss of >10#?: NO Have you had fever, night sweats or hemotysis?: No Have you traveled outside the country in the last 6 months?: No Isolation: Standard ROS Review of Systems Constitutional: See HPI, Weakness and Fatigue; negative Fever Eyes: No Symptoms Reported and See HPI; negative Eye Pain and Blurred Vision ENTM: No Symptoms Reported and See HPI; negative Ear Pain, Nose Discharge, Nose Congestion and Throat Pain Respiratoy: No Symptoms Reported and See HPI; negative Short of Breath and Wheezing Cardiovascular: See HPI and Chest Pain; negative Edema, Palpitations and Syncope Gastrointestinal/Abdominal: No Symptoms Reported and See HPI; negative Abdominal Pain, Nausea and Vomiting Genitourinary: No Symptoms Reported and See HPI; negative Dysuria, Frequency and Hematuria Neurological: See HPI and Weakness; negative Headache and Dizziness Musculoskeletal: No Symptoms Reported and See HPI; negative Back Pain and Muscle Pain Integumentary: No Symptoms Reported and See HPI; negative Change in Color and Rash Hematologic/Lymphatic: No Symptoms Reported and See HPI; negative Easy Bruising and Swollen Glands Endocrine: No Symptoms Reported and See HPI; negative Increased Thirst and Increased Urine Psychiatric: No Symptoms Reported and See HPI All Other Systems: Reviewed and Negative PE Vitals Vitals: Temperature 98.2 F Pulse Rate 50 Respiratory Rate 15 Blood Pressure [Left Arm] 163/72 Blood Pressure 155/66 O2 Sat by Pulse Oximetry 96 General Limitations: No Limitations General Appearance: Alert and In No Apparent Distress Head Head Exam: Normal Inspection and Atraumatic Eyes Eye exam: Normal Appearance and PERRL; negative Scleral Icterus and Conjunctival Injection ENT ENT Exam: Normal Exam, Normal Oropharynx, Normal External Ear Exam and TM's Normal Bilaterally Chest Chest Inspection: Normal Inspection and Symmetric Chest Wall Rise; negative Tenderness Respiratory Respiratory Exam: Normal Lung Sounds Bilat; negative Accessory Muscle Use, Chest Wall Tenderness and Respiratory Distress Respiratory Exam: Bilateral: Rhonchi and Lower: Rhonchi Cardiovascular Cardiovascular Exam: Regular Rate, Normal Rhythm and Normal Heart Sounds; negative Systolic Murmur and Diastolic Murmur Pulse: Normal Edema: Normal Abdominal Exam Abdominal Exam: Normal Inspection, Normal Bowel Sounds and Soft; negative Tenderness Extremities Extremities Exam: Normal Inspection and Tenderness; negative Normal Capillary Refill and Joint Swelling Back Back Exam: Normal Inspection and Tenderness; negative (R) CVA Tenderness, (L) CVA Tenderness, Paraspinal Tenderness and Vertebral Tenderness Neurologic Neurological Exam: Alert and Oriented X3; negative Motor Sensory Deficit Psychiatric Psychiatric Exam: Normal Affect and Normal Mood Skin Skin Exam: Warm, Dry, Intact and Normal Color MDM Differential Diagnosis Differential Diagnosis: Angina, Chest Wall Pain, CHF, Costochondritis, Myocardial Infarction, Pericarditis, Pleuritis, Pneumonia, Pneumothorax and Pulmonary Embolus COURSE Treatment Treatment: SEE ORDERS. Education/Counseling Education/Counseling: Patient Educated On: Diagnosis and Needs for Follow Up ROR Labs Reviewed Laboratory Results Reviewed?: Yes Result Diagrams: 06/25/19 04:15 06/25/19 04:15 Laboratory: WBC 3.8 X10^3/uL (3.6-10.0) 06/22/19 12:19 RBC 3.87 X10^6/uL (3.5-5.4) 06/22/19 12:19 Hgb 12.3 g/dL (12.0-16.0) 06/22/19 12:19 Hct 36.0 % (36.0-47.0) 06/22/19 12:19 MCV 93.0 fL (80.0-100.0) 06/22/19 12: MCH 31.8 pg (27.0-34.0) 06/22/19 12: MCHC 34.2 g/dL (33.0-35.0) 06/22/19 12: RDW 13.6 % (11.6-16.5) 06/22/19 12:19 Plt Count 188 X10^3/uL (150.0-450.0) 06/22/19 12:19 MPV 6.8 fL (7.4-11.0) L 06/22/19 12: Neut % (Auto) 50.0 % (42.0-75.0) 06/22/19 12: Lymph % (Auto) 28.4 % (21.0-51.0) 06/22/19 12: [place] % (Auto) 16.0 % (0.0-13.0) H 06/22/19 12:19 Eos % (Auto) 4.6 % (0.9-2.9) H 06/22/19 12:19 Baso % (Auto) 1.0 % (0.2-1.0) 06/22/19 12:19 Neut # (Auto) 1.9 x10^3/uL (2.2-4.8) L 06/22/19 12:19 Lymph # (Auto) 1.1 X10^3/uL (1.3-2.9) L 06/22/19 12:19 [place] # (Auto) 0.6 x10^3/uL (0.3-0.8) 06/22/19 12:19 Eos # (Auto) 0.2 x10^3/uL (0.0-0.2) 06/22/19 12:19 Baso # (Auto) 0.0 X10^3/uL (0.0-0.1) 06/22/19 12:19 Absolute Nucleated RBC 0.1 /100WBC 06/22/19 12:19 D-Dimer 274 ng/mL (0-400) 06/22/19 12:19 Sodium 142 mmol/L (136-145) 06/22/19 12:19 Corrected Sodium TNP 06/22/19 12:19 Potassium 4.1 mmol/L (3.5-5.1) 06/22/19 12:19 Chloride 107 mmol/L (98-107) 06/22/19 12:19 Carbon Dioxide 26.4 mmol/L (21-32) 06/22/19 12:19 BUN 16 mg/dL (7-18) 06/22/19 12:19 Creatinine 0.99 mg/dL (0.55-1.02) 06/22/19 12:19 Est GFR (MDRD) Af Amer > 60 (>60) 06/22/19 12:19 Est GFR (MDRD) Non-Af 58 (>60) L 06/22/19 12:19 Glucose 80 mg/dL (65-99) 06/22/19 12:19 Calcium 8.8 mg/dL (8.5-10.1) 06/22/19 12:19 Corrected Calcium TNP 06/22/19 12:19 Total Bilirubin 0.20 mg/dL (0.2-1.0) 06/22/19 12:19 AST 20 Units/L (15-37) 06/22/19 12:19 ALT 21 Units/L (12-78) 06/22/19 12:19 Alkaline Phosphatase 63 Units/L (46-116) 06/22/19 12:19 Creatine Kinase 139 Units/L (26-192) 06/22/19 12:19 CK-MB (CK-2) 2.6 ng/mL (0-4.0) 06/22/19 12:19 CK/CKMB % Calc 1.9 % (<4) 06/22/19 12:19 Troponin I < 0.02 ng/mL (0-1.5) 06/22/19 12:19 B-Natriuretic Peptide 182 pg/mL (0-79) H 06/22/19 12:19 Total Protein 6.9 g/dL (6.4-8.2) 06/22/19 12:19 Albumin 3.6 g/dL (3.4-5.0) 06/22/19 12:19 Globulin 3.3 g/dL (2.5-4.5) 06/22/19 12:19 Albumin/Globulin Ratio 1.1 Ratio (1.1-2.1) 06/22/19 12:19 XRAY XRAY Interpreted by: Radiologist XRAY Findings: REPORT NOTED AND DISCUSSED WITH PATIENT. EKG Rate: 52 [place]: Normal Rhythm: SB Block: None Hypertrophy: None ST: Old, Inf and Ant Opioid Opioid Risk Tool Age (Jon box if 16-45): No Total: 0 Total Score Risk Category: Low Risk Copyright: [facility] predicting aberrant behaviors Diagnosis Discharge Problem: Bradycardia Chest pain Qualifiers: Chest pain type: unspecified Qualified Code(s): R07.9 - Chest pain, unspecified Instructions Instructions: Nonspecific Chest Pain, [id number] Bradycardia, Adult Hypertension, [id number] Managing Your Hypertension Coronary Artery Disease, Female Forms: Excuse From Work or School Patient Portal
[2019-06-22 12:42] LABS: BLOOD UREA NITROGEN 16 mg/dL (7-18); CALCIUM 8.8 mg/dL (8.5-10.1); CARBON DIOXIDE 26.4 mmol/L (21-32); CHLORIDE 107 mmol/L (98-107); CREATININE 0.99 mg/dL (0.55-1.02); SODIUM 142 mmol/L (136-145); TROPONIN I < 0.02 ng/mL (0-1.5); eGFR NON BLACK RACES 58 (>60)
[2019-06-22 12:47] LABS: ALANINE AMINOTRANSFERASE 21 Units/L (12-78); ALBUMIN 3.6 g/dL (3.4-5.0); ALKALINE PHOSPHATASE 63 Units/L (46-116); ASPARTATE AMINO TRANSFERASE 20 Units/L (15-37); CKMB % 1.9 % (<4); CREATINE KINASE 139 Units/L (26-192); CREATINE KINASE MB 2.6 ng/mL (0-4.0); TOTAL PROTEIN 6.9 g/dL (6.4-8.2)
--- NOTE | 2019-06-22 14:38 | RAD ---
HISTORY: 79-year-old female with chest pain. Study: Frontal view of the chest. Comparison: Chest radiograph 12/13/2016 Findings: Surgical devices are stable. The trachea is midline. The cardiac silhouette is stable with chronic prominence interstitium and perihilar lung markings. The lungs are clear without focal consolidation, effusion or pneumothorax. Soft tissues are unremarkable. Osseous structures are unremarkable. IMPRESSION: 1. No acute cardiopulmonary disease with findings suggesting COPD. Reported By:
[2019-06-22 19:01] LABS: BILIRUBIN,URINE NEGATIVE (NEGATIVE); BLOOD/HEMOGLOBIN,URINE 1+ (NEGATIVE); GLUCOSE, URINE NEGATIVE (NEGATIVE); KETONES,URINE NEGATIVE (NEGATIVE); LEUKOCYTE ESTERASE ,URINE NEGATIVE (NEGATIVE); NITRITES,URINE NEGATIVE (NEGATIVE); PROTEIN,URINE NEGATIVE (NEGATIVE); UROBILINOGEN,URINE NORMAL (NORMAL)
[2019-06-22 19:07] LABS: APPEARANCE,URINE CLEAR (CLEAR); BACTERIA,URINE NEGATIVE /HPF (NEGATIVE); COLOR,URINE YELLOW (YELLOW); RBC,URINE NONE SEEN /HPF (0-3); SQUAMOUS EPITHELIAL CELL,UR RARE /HPF (NEGATIVE)
[2019-06-22 19:32] LABS: CKMB % 2.1 % (<4); CREATINE KINASE MB 2.5 ng/mL (0-4.0); TROPONIN I 0.11 ng/mL (0-1.5)
--- NOTE | 2019-06-22 19:44 | DR.H&P ---
H&P - History & Physical for Day of: H&P Date: 06/22/19 - Chief Complaint Chief Complaint: CHEST PAIN - History of Present Illness History of Present Illness: IS A 79 YEAR OLD PATIENT OF OURS WHO PRESENTED TO THE ER WITH REPORTS OF LEFT SIDED CHEST PAIN THAT RADIATES TO THE LEFT ARM AND LEFT SIDE BACK. PAIN IS DESCRIBED THROBBING AND IS RATED A 5/10. SHE DENIES SHORTNESS OF BREATH. SYMPTOMS REPORTEDLY STARTED AT 0700. PMH INCLU EVAN CAD, DYSLIPIDEMIA, HTN, AND HYPOTHYROIDISM. ON ARRIVAL TO THE ER, VITALS WERE 98.2-52-18-99%-181/87. LABS WERE OBTAINED. ABNORMAL LAB VALUES INCLUDE THE FOLLOWING: BNP 182. LABS ARE OTHERWISE UNREMARKABLE. CARDIAC ENZYMES WITHIN NORMAL LIMITS. URINALYSIS UNREMARKABLE. A CHEST XRAY WAS OBTAINED AND REVEALED: No acute cardiopulmonary disease with findings suggesting COPD. EKG REVEALED: SINUS RHYTHM WITH HR 52. WE ADMITTED PATIENT FOR FURTHER EVALUATION AND TREATMENT OF CHEST PAIN RULE OUT ACUTE MT AND BRADYCARDIA. WE WILL OBTAIN SERIAL CARDIAC ENZYMES AND EKGS. OTHERWISE, WE WILL FOLLOW UP WITH AM LABS AND CONTINUE TO MONITOR. - Past Medical History Past Medical History: Coronary Artery Disease, Hypertension, Dyslipidemia, Hypothyroidism Additional Medical History: Previous Blood Transfusion - Past Surgical History Surgical History: CABG/Valve Surgery, Hysterectomy, Ortho Surgery Additional Surgical History: QUADRUPLE BYPASS - Family History Family Medical History: Cancer - Social History Does patient currently use any type of tobacco product: No Have you used tobacco products in the last 12 months: No Type of Tobacco Use: None Does any household member use tobacco: No Alcohol Use: None Prescription drug monitoring program results: PDMP was not reviewed - Medications Home Medications: No Known Drug Allergies Allergy (Verified 06/22/19 12:01) CONTINUE taking the following medications amlodipine-benazepril 1 cap PO DAILY 06/22/19 [History] aspirin [Aspir-81] 81 mg PO HS 06/22/19 [History] clonazepam 1 mg PO HS 06/22/19 [History] labetalol 200 mg PO BID 06/22/19 [History] levothyroxine 50 mcg PO DAILY 06/22/19 [History] primidone 50 mg PO HS 06/22/19 [History] simvastatin 40 mg PO HS 06/22/19 [History] - Review of Systems Constitutional: No Symptoms Reported Eyes: No Symptoms Reported ENT: No Symptoms Reported Respiratory: No Symptoms Reported. denies: Cough, Shortness of Breath Cardiovascular: Chest Pain Gastrointestinal: No Symptoms Reported Genitourinary: No Symptoms Reported Musculoskeletal: See HPI, Arm Pain, Back Pain Skin: No Symptoms Reported Neurological: No Symptoms Reported - Physical Exam Vital Signs: Temperature 98 F Pulse Rate [Right Brachial] 53 Pulse Rate 49 Respiratory Rate 18 Blood Pressure [Left Arm] 187/73 Blood Pressure 158/70 O2 Sat by Pulse Oximetry 98 Oriented: Normal Eyes: Normal Ear: Normal Nose: Normal Throat: Normal Respiratory: Diminished Throughout Cardiovascular: Bradycardia. negative: S3, S4, Murmur : Normal Auscultation: Bowel Sounds: Normal Palpation: Normal Tenderness: Normal Skin: Normal Musculoskeletal: Normal Psychiatric: Normal Mood Description: Calm Affect: Normal Speech Pattern: Clear - Assessment/Plan (1) Chest pain, rule out acute myocardial infarction Status: Acute Plan: SERIAL CARDIAC ENZYMES AND EKG, SUPPLEMENTAL OXYGEN, CONTINUE TO MONITOR (2) Bradycardia Status: Acute - Allergies Allergies/Adverse Reactions: Allergies Allergy/AdvReac Type Severity Reaction Status Date / Time No Known Drug Allergies Allergy Verified 06/22/19 12:01
[2019-06-22] MEDS: KLONOPIN TAB 1 MG PO SCH (21:47)
[2019-06-22] MEDS: ASPIRIN EC 81 MG PO SCH (21:47)
[2019-06-22] MEDS: ZOCOR TAB 40 MG PO SCH (21:47)
[2019-06-22] MEDS: MYSOLINE PO SCH (21:48)
[2019-06-23 01:36] LABS: CKMB % 1.9 % (<4); CREATINE KINASE MB 1.9 ng/mL (0-4.0); TROPONIN I 0.12 ng/mL (0-1.5)
[2019-06-23 05:19] LABS: BASOPHILS % (AUTO) 0.9 % (0.2-1.0); EOSINOPHILS # (AUTO) 0.2 x10^3/uL (0.0-0.2); EOSINOPHILS % (AUTO) 4.3 % (0.9-2.9); HEMATOCRIT 37.4 % (36.0-47.0); HEMOGLOBIN 12.5 g/dL (12.0-16.0); LYMPHOCYTES # (AUTO) 1.5 X10^3/uL (1.3-2.9); LYMPHOCYTES % (AUTO) 34.6 % (21.0-51.0); MEAN CORPUSCULAR HEMOGLOBIN 31.5 pg (27.0-34.0); MEAN CORPUSCULAR HGB CONC 33.5 g/dL (33.0-35.0); MEAN CORPUSCULAR VOLUME 94.2 fL (80.0-100.0); MEAN PLATELET VOLUME 7.4 fL (7.4-11.0); MONOCYTES # (AUTO) 0.6 x10^3/uL (0.3-0.8); MONOCYTES % (AUTO) 13.7 % (0.0-13.0); NEUTROPHILS % (AUTO) 46.5 % (42.0-75.0); PLATELET COUNT 188 X10^3/uL (150.0-450.0); RED BLOOD COUNT 3.97 X10^6/uL (3.5-5.4); RED CELL DISTRIBUTION WIDTH 13.7 % (11.6-16.5); WHITE BLOOD COUNT 4.4 X10^3/uL (3.6-10.0)
[2019-06-23 05:27] LABS: ALANINE AMINOTRANSFERASE 19 Units/L (12-78); ALBUMIN 3.4 g/dL (3.4-5.0); ALKALINE PHOSPHATASE 60 Units/L (46-116); ASPARTATE AMINO TRANSFERASE 19 Units/L (15-37); BLOOD UREA NITROGEN 18 mg/dL (7-18); CARBON DIOXIDE 27.6 mmol/L (21-32); CHLORIDE 107 mmol/L (98-107); CHOL/HDL RATIO 4.6 (0.0-5.0); CHOLESTEROL 201 mg/dL (0-200); CREATININE 0.98 mg/dL (0.55-1.02); HDL CHOLESTEROL 44 mg/dL (40-60); SODIUM 143 mmol/L (136-145); TOTAL PROTEIN 6.6 g/dL (6.4-8.2); TRIGLYCERIDES 127 mg/dL (0-150); eGFR NON BLACK RACES 58 (>60)
[2019-06-23] MEDS ORDERED: AMLODIPINE BENAZEPRIL PO SCH (09:00)
[2019-06-23] MEDS: SYNTHROID 50 mcg TAB PO SCH (09:22)
[2019-06-23] MEDS: NORVASC TAB 5 MG PO SCH (09:22)
[2019-06-23] MEDS: LOTENSIN TAB 10 MG PO SCH (09:22)
[2019-06-23] MEDS: LOVENOX INJ 40 MG SYR SC SCH (15:49)
[2019-06-23 18:47] LABS: CKMB % 1.6 % (<4); CREATINE KINASE MB 1.2 ng/mL (0-4.0); TROPONIN I 0.05 ng/mL (0-1.5)
--- NOTE | 2019-06-23 20:18 | PCM.PROG ---
Progress Note - Progress Note for Day of Date of Exam: 06/23/19 - Subjective Subjective: WAS ADMITTED FOR CHEST PAIN, RULE OUT ACUTE [place] AND BRADYCARDIA. TODAY, SHE IS ALERT AND ORIENTED, LYIGN IN BED ON MORNING ROUNDS. SHE CONTINUES WITH INTERMITTENT PAIN AND WEAKNESS. ON EXAMINATION, HEART IS REGULAR IN RATE AND RHYTHM. BILATERAL LUNGS ARE NOTED WITH DIMINISHED LUNG DANGELO NDS THROUGHOUT. ABDOMEN IS ROUND, SOFT, AND NON-TENDER WITH NORMAL BOWEL SOUNDS NOTED IN ALL QUADRANTS. HER VITALS THIS MORNING ARE: 97.6-50-20-100%-139/61. LABS WERE OBTAINED. ABNORMAL LAB VALUES INCLUDE THE FOLLOWING: CHOLESTEROL 201, LDL 132. CARDIAC ENZYMES HAVE BEEN WITHIN NORMAL LIMITS. NO CHANGES NOTED TO EKGS. WE RESUMED HER HOME MEDICATIONS. WE WILL CONTINUE TO CHECK SERIAL CARDIAC ENZYMES AND EKGS TODAY. WE WILL OBTAIN AN ECHO. OTHERWISE, WE WILL FOLLOW UP WITH AM LABS AND CONTINUE TO MONITOR. - Past Medical Family Social History Past Med/Fam/Surg Hx: No changes since H&P Allergies: Allergies No Known Drug Allergies Allergy (Verified 06/22/19 12:01) - Review of Systems ROS: No change since H&P - Vital Signs and I&O's Vital Signs: Temperature 98.6 F Pulse Rate [Left Brachial] 62 Pulse Rate [Right Brachial] 50 Pulse Rate 49 Respiratory Rate 18 Blood Pressure [Right Arm] 139/61 Blood Pressure [Left Arm] 114/61 Blood Pressure 158/70 O2 Sat by Pulse Oximetry 97 Intake and Output: Intake & Output 06/21/19 06/22/19 06/23/19 06/24/19 11:59 11:59 11:59 11:59 Intake Total 130 / 130 840 / 840 Balance 130 / 130 840 / 840 - Physical Exam Oriented: Normal Eyes: Normal Ear: Normal Nose: Normal Throat: Normal Respiratory: Generalized, Diminished Cardiovascular: Bradycardia. negative: S3, S4, Murmur : Normal Auscultation: Bowel Sounds: Normal Palpation: Normal Tenderness: Normal Skin: Normal Musculoskeletal: Normal Psychiatric: Normal Mood Description: Calm Affect: Normal Speech Pattern: Clear, Appropriate - Laboratory and Diagnostics Result Diagrams: 06/23/19 04:16 06/23/19 04:16 Labs: Laboratory WBC 4.4 X10^3/uL (3.6-10.0) 06/23/19 04:16 RBC 3.97 X10^6/uL (3.5-5.4) 06/23/19 04:16 Hgb 12.5 g/dL (12.0-16.0) 06/23/19 04:16 Hct 37.4 % (36.0-47.0) 06/23/19 04:16 MCV 94.2 fL (80.0-100.0) 06/23/19 04:16 MCH 31.5 pg (27.0-34.0) 06/23/19 04:16 MCHC 33.5 g/dL (33.0-35.0) 06/23/19 04:16 RDW 13.7 % (11.6-16.5) 06/23/19 04:16 Plt Count 188 X10^3/uL (150.0-450.0) 06/23/19 04:16 MPV 7.4 fL (7.4-11.0) 06/23/19 04:16 Neut % (Auto) 46.5 % (42.0-75.0) 06/23/19 04:16 Lymph % (Auto) 34.6 % (21.0-51.0) 06/23/19 04:16 [place] % (Auto) 13.7 % (0.0-13.0) H 06/23/19 04:16 Eos % (Auto) 4.3 % (0.9-2.9) H 06/23/19 04:16 Baso % (Auto) 0.9 % (0.2-1.0) 06/23/19 04:16 Neut # (Auto) 2.0 x10^3/uL (2.2-4.8) L 06/23/19 04:16 Lymph # (Auto) 1.5 X10^3/uL (1.3-2.9) 06/23/19 04:16 [place] # (Auto) 0.6 x10^3/uL (0.3-0.8) 06/23/19 04:16 Eos # (Auto) 0.2 x10^3/uL (0.0-0.2) 06/23/19 04:16 Baso # (Auto) 0.0 X10^3/uL (0.0-0.1) 06/23/19 04:16 Absolute Nucleated RBC 0.0 /100WBC 06/23/19 04:16 D-Dimer 274 ng/mL (0-400) 06/22/19 12:19 Sodium 143 mmol/L (136-145) 06/23/19 04:16 Corrected Sodium TNP 06/23/19 04:16 Potassium 4.1 mmol/L (3.5-5.1) 06/23/19 04:16 Chloride 107 mmol/L (98-107) 06/23/19 04:16 Carbon Dioxide 27.6 mmol/L (21-32) 06/23/19 04:16 BUN 18 mg/dL (7-18) 06/23/19 04:16 Creatinine 0.98 mg/dL (0.55-1.02) 06/23/19 04:16 Est GFR (MDRD) Af Amer > 60 (>60) 06/23/19 04:16 Est GFR (MDRD) Non-Af 58 (>60) L 06/23/19 04:16 Glucose 77 mg/dL (65-99) 06/23/19 04:16 Calcium 9.0 mg/dL (8.5-10.1) 06/23/19 04:16 Corrected Calcium TNP 06/23/19 04:16 Total Bilirubin 0.30 mg/dL (0.2-1.0) 06/23/19 04:16 AST 19 Units/L (15-37) 06/23/19 04:16 ALT 19 Units/L (12-78) 06/23/19 04:16 Alkaline Phosphatase 60 Units/L (46-116) 06/23/19 04:16 Creatine Kinase 74 Units/L (26-192) 06/23/19 18:15 CK-MB (CK-2) 1.2 ng/mL (0-4.0) 06/23/19 18:15 CK/CKMB % Calc 1.6 % (<4) 06/23/19 18:15 Troponin I 0.05 ng/mL (0-1.5) 06/23/19 18:15 B-Natriuretic Peptide 182 pg/mL (0-79) H 06/22/19 12:19 Total Protein 6.6 g/dL (6.4-8.2) 06/23/19 04:16 Albumin 3.4 g/dL (3.4-5.0) 06/23/19 04:16 Globulin 3.2 g/dL (2.5-4.5) 06/23/19 04:16 Albumin/Globulin Ratio 1.1 Ratio (1.1-2.1) 06/23/19 04:16 Triglycerides 127 mg/dL (0-150) 06/23/19 04:16 Cholesterol 201 mg/dL (0-200) H 06/23/19 04:16 LDL Cholesterol, Calc 132 mg/dL (0-100) H 06/23/19 04:16 HDL Cholesterol 44 mg/dL (40-60) 06/23/19 04:16 Cholesterol/HDL Ratio 4.6 (0.0-5.0) 06/23/19 04:16 Specimen Type Clean catch urine 06/22/19 18:40 Urine Color Yellow (YELLOW) 06/22/19 18:40 Urine Appearance Clear (CLEAR) 06/22/19 18:40 Urine pH 6.0 (5.0 - 8.0) 06/22/19 18:40 Ur Specific [place] 1.015 (1.000-1.030) 06/22/19 18:40 Urine Protein Negative (NEGATIVE) 06/22/19 18:40 Urine Glucose (UA) Negative (NEGATIVE) 06/22/19 18:40 Urine Ketones Negative (NEGATIVE) 06/22/19 18:40 Urine Occult Blood 1+ (NEGATIVE) 06/22/19 18:40 Urine Nitrite Negative (NEGATIVE) 06/22/19 18:40 Urine Bilirubin Negative (NEGATIVE) 06/22/19 18:40 Urine Urobilinogen Normal (NORMAL) 06/22/19 18:40 Ur Leukocyte Esterase Negative (NEGATIVE) 06/22/19 18:40 Urine RBC None seen /HPF (0-3) 06/22/19 18:40 Urine WBC None seen /HPF (0-5) 06/22/19 18:40 Ur Squamous Epith Cells Rare /HPF (NEGATIVE) 06/22/19 18:40 Urine Bacteria Negative /HPF (NEGATIVE) 06/22/19 18:40 Ur Culture Indicated? No/not indicated 06/22/19 18:40 - Plan (1) Chest pain, rule out acute myocardial infarction Status: Inactive Plan: SERIAL CARDIAC ENZYMES AND EKG, OBTAIN ECHO, SUPPLEMENTAL OXYGEN, CONTINUE TO MONITOR (2) Bradycardia Status: Acute
[2019-06-23] MEDS: ZOCOR TAB 40 MG PO SCH (20:26)
[2019-06-23] MEDS: KLONOPIN TAB 1 MG PO SCH (20:26)
[2019-06-23] MEDS: MYSOLINE PO SCH (20:27)
[2019-06-23] MEDS: ASPIRIN EC 81 MG PO SCH (20:27)
[2019-06-24 04:28] LABS: BASOPHILS % (AUTO) 0.8 % (0.2-1.0); EOSINOPHILS # (AUTO) 0.2 x10^3/uL (0.0-0.2); EOSINOPHILS % (AUTO) 3.8 % (0.9-2.9); HEMOGLOBIN 12.6 g/dL (12.0-16.0); LYMPHOCYTES # (AUTO) 1.4 X10^3/uL (1.3-2.9); LYMPHOCYTES % (AUTO) 31.5 % (21.0-51.0); MEAN CORPUSCULAR HEMOGLOBIN 31.3 pg (27.0-34.0); MEAN CORPUSCULAR HGB CONC 33.2 g/dL (33.0-35.0); MEAN CORPUSCULAR VOLUME 94.3 fL (80.0-100.0); MONOCYTES # (AUTO) 0.7 x10^3/uL (0.3-0.8); MONOCYTES % (AUTO) 14.4 % (0.0-13.0); NEUTROPHILS # (AUTO) 2.2 x10^3/uL (2.2-4.8); NEUTROPHILS % (AUTO) 49.5 % (42.0-75.0); PLATELET COUNT 193 X10^3/uL (150.0-450.0); RED BLOOD COUNT 4.03 X10^6/uL (3.5-5.4); RED CELL DISTRIBUTION WIDTH 13.5 % (11.6-16.5); WHITE BLOOD COUNT 4.5 X10^3/uL (3.6-10.0)
[2019-06-24 04:34] LABS: ALANINE AMINOTRANSFERASE 19 Units/L (12-78); ALBUMIN 3.4 g/dL (3.4-5.0); ALKALINE PHOSPHATASE 61 Units/L (46-116); ASPARTATE AMINO TRANSFERASE 16 Units/L (15-37); BLOOD UREA NITROGEN 17 mg/dL (7-18); CALCIUM 8.9 mg/dL (8.5-10.1); CARBON DIOXIDE 26.9 mmol/L (21-32); CHLORIDE 106 mmol/L (98-107); CREATININE 1.04 mg/dL (0.55-1.02); SODIUM 144 mmol/L (136-145); TOTAL PROTEIN 6.5 g/dL (6.4-8.2); eGFR NON BLACK RACES 54 (>60)
[2019-06-24] MEDS: LOVENOX INJ 40 MG SYR SC SCH (09:11)
[2019-06-24] MEDS: LOTENSIN TAB 10 MG PO SCH (09:12)
[2019-06-24] MEDS: NORVASC TAB 5 MG PO SCH (09:13)
[2019-06-24] MEDS: SYNTHROID 50 mcg TAB PO SCH (09:13)
--- NOTE | 2019-06-24 10:10 | RAD ---
History: Chest pain Study: PA and lateral chest Comparison: June 22, 2019 Findings: The heart size is prominent status post CABG. There is mild chronic interstitial lung disease. There is no lung consolidation or atelectasis and there is no edema or effusion. Impression: No evidence for acute cardiopulmonary disease Reported By:
[2019-06-24 10:42] LABS: CKMB % 1.8 % (<4); CREATINE KINASE MB 1.3 ng/mL (0-4.0); TROPONIN I 0.03 ng/mL (0-1.5)
[2019-06-24] MEDS: PLAVIX PO SCH (15:16)
[2019-06-24 16:29] LABS: CKMB % 1.6 % (<4); TROPONIN I 0.04 ng/mL (0-1.5)
[2019-06-24] MEDS: ASPIRIN EC 81 MG PO SCH (20:05)
[2019-06-24] MEDS: KLONOPIN TAB 1 MG PO SCH (20:05)
[2019-06-24] MEDS: ZOCOR TAB 40 MG PO SCH (20:05)
[2019-06-24] MEDS: MYSOLINE PO SCH (20:06)
[2019-06-24 22:11] LABS: CKMB % 1.5 % (<4); CREATINE KINASE 67 Units/L (26-192); CREATINE KINASE MB < 1.0 ng/mL (0-4.0); TROPONIN I 0.03 ng/mL (0-1.5)
[2019-06-25 05:27] LABS: BASOPHILS % (AUTO) 0.9 % (0.2-1.0); EOSINOPHILS # (AUTO) 0.2 x10^3/uL (0.0-0.2); EOSINOPHILS % (AUTO) 4.2 % (0.9-2.9); HEMATOCRIT 37.3 % (36.0-47.0); HEMOGLOBIN 12.5 g/dL (12.0-16.0); LYMPHOCYTES # (AUTO) 1.6 X10^3/uL (1.3-2.9); LYMPHOCYTES % (AUTO) 34.8 % (21.0-51.0); MEAN CORPUSCULAR HEMOGLOBIN 31.6 pg (27.0-34.0); MEAN CORPUSCULAR HGB CONC 33.5 g/dL (33.0-35.0); MEAN CORPUSCULAR VOLUME 94.1 fL (80.0-100.0); MEAN PLATELET VOLUME 7.3 fL (7.4-11.0); MONOCYTES # (AUTO) 0.7 x10^3/uL (0.3-0.8); MONOCYTES % (AUTO) 15.8 % (0.0-13.0); NEUTROPHILS # (AUTO) 2.1 x10^3/uL (2.2-4.8); NEUTROPHILS % (AUTO) 44.3 % (42.0-75.0); PLATELET COUNT 198 X10^3/uL (150.0-450.0); RED BLOOD COUNT 3.97 X10^6/uL (3.5-5.4); RED CELL DISTRIBUTION WIDTH 13.5 % (11.6-16.5); WHITE BLOOD COUNT 4.7 X10^3/uL (3.6-10.0)
[2019-06-25 05:44] LABS: ALANINE AMINOTRANSFERASE 20 Units/L (12-78); ALBUMIN 3.4 g/dL (3.4-5.0); ALKALINE PHOSPHATASE 61 Units/L (46-116); ASPARTATE AMINO TRANSFERASE 18 Units/L (15-37); BLOOD UREA NITROGEN 15 mg/dL (7-18); CARBON DIOXIDE 28.3 mmol/L (21-32); CHLORIDE 107 mmol/L (98-107); SODIUM 143 mmol/L (136-145); TOTAL PROTEIN 6.5 g/dL (6.4-8.2); eGFR NON BLACK RACES > 60 (>60)
[2019-06-25] MEDS: LOTENSIN TAB 10 MG PO SCH (09:11)
[2019-06-25] MEDS: NORVASC TAB 5 MG PO SCH (09:11)
[2019-06-25] MEDS: SYNTHROID 50 mcg TAB PO SCH (09:11)
[2019-06-25] MEDS: PLAVIX PO SCH (09:11)
[2019-06-25] MEDS: LOVENOX INJ 40 MG SYR SC SCH (09:14)
[2019-06-25 11:40] VITALS: BP 159/67
== END 2019-06-25 11:55 | disposition home or self-care (01) ==
LOC: MED/SURG 12:00 → ER 12:00 → MED/SURG 16:42
PROVIDERS: ADMIT Internal Medicine; ATTEND Internal Medicine
DX: E03.8 Other specified hypothyroidism; I10 Essential (primary) hypertension; Z79.899 Other long term (current) drug therapy; R07.89 Other chest pain; I25.10 Atherosclerotic heart disease of native coronary artery without angina pectoris; E78.2 Mixed hyperlipidemia; R00.1 Bradycardia, unspecified
CPT/HCPCS: 36415; 71010; 71020; 71045; 71046; 80053; 80061; 81001; 82550; 82553; 83880; 84484; 85025; 85378; 93005; 93306; 94760; 96365; 96372; 96374; 99283; A4216; A4222; G0378; J1650

== ENCOUNTER 2025-04-14 13:36 | Observation (INO) ==
--- NOTE | 2025-04-14 13:45 | EKG ---
Test Reason : poss stroke Blood Pressure : */* mmHG Vent. Rate : 116 BPM Atrial Rate : * BPM P-R Int : * ms QRS Dur : 98 ms QT Int : 342 ms P-R-T Axes : * -63 176 degrees QTc Int : 475 ms hard to tell rhythm with baseline artiface but suspect atrial flutter as seen before Left axis deviation Incomplete right bundle branch block Anterior infarct (cited on or before 03-JAN-2023) Abnormal ECG When compared with ECG of 05-OCT-2024 23:41, Previous ECG has undetermined rhythm, needs review Incomplete right bundle branch block is now present Questionable change in initial forces of Septal leads Confirmed by Lucas Munoz MD ([id number]) on 04/15/2025 2:33:41 PM Referred By: Confirmed By: Lucas Munoz MD
[2025-04-14 14:02] LABS: MEAN PLATELET VOLUME 7.3 fL (7.4-11.0); RED CELL DISTRIBUTION WIDTH 18.2 % (11.6-16.5)
[2025-04-14 14:05] LABS: INR 1.13 (0.8-1.3)
[2025-04-14 14:11] LABS: CHOL/HDL RATIO 2.6 (0.0-5.0); COR NA(FOR HYPERGLY) 133 mmol/L (136-145); CREATININE 1.37 mg/dL (0.55-1.02); eGFR NON BLACK RACES 39 (>60)
--- NOTE | 2025-04-14 14:13 | TELESTROKE ---
[facility] Consult Date of Consult Date of Exam: 04/14/25 Time of Arrival to the ED: 13:36 Allergies Allergies Allergy/AdvReac Type Severity Reaction Status Date / Time No Known Drug Allergies Allergy Verified 12/14/24 23:28 History of Present Illness History of Present Illness: [facility] Consult Services Patient Name:Dee Villagomez Date of :1940 Identification Number: Date of Service:04/14/2025 13:41:01 Diagnosis:R42 - Dizziness/ Vertigo/ Giddiness Impression: 85yo woman w/PMH of HTN, HLD, Afib on Eliquis, hypothyroidism p/w falls, dizziness on 04/14/25. She states she tripped over her own feet this morning and fell to the ground, but did not hit her head. She felt normal after that fall, but then at 11:00 she was folding laundry when she developed dizziness and nausea. She tried to sit down but fell again so her brought her to the ED. She otherwise denies complaints. NIHSS 0. CT Head has no acute findings, chronic infarct noted. Pt is not a candidate for thrombolytics due to Eliquis use. Presentation is concerning for TIA or acute small vessel ischemic stroke based on history and exam, MRI Brain advised. Other possibilities include peripheral vertigo, infectious or metabolic encephalopathy. Plan listed below was recommended to the ED physician by phone. Our recommendations are outlined below. Recommendations: Stroke/Telemetry Floor Neuro Checks (Q4) Bedside Swallow Eval DVT Prophylaxis IV Fluids, Normal Saline Head of Bed 30 Degrees Euglycemia and Avoid Hyperthermia (PRN Acetaminophen) Antihypertensives PRN if Blood pressure is greater than 220/120 or there is a concern for End organ damage/contraindications for permissive HTN. If blood pressure is greater than 220/120 give labetalol PO or IV or Vasotec IV with a goal of 15% reduction in BP during the first 24 hours. Continue home medications, including Eliquis Routine MRI Brain without contrast to assess for stroke Routine CTA Head/Neck with contrast or MRA Head/Neck without contrast to assess vasculature TTE (if not recently done) Lipid Profile, A1C PT/OT, Speech/Swallow evaluation Sign Out: Discussed with Emergency Department Provider Advanced Imaging: Advanced Imaging Deferred because: Non-disabling symptoms as verified by the patient; no cortical signs so not consistent with LVO Metrics: Last Known Well: 04/14/2025 11:00:00 Dispatch Time: 04/14/2025 13:41:01 Arrival Time: 04/14/2025 13:36:00 Initial Response Time: 04/14/2025 13:43:33Symptoms: falls, dizziness. Initial patient interaction: 04/14/2025 13:58:00 NIHSS Assessment Completed: 04/14/2025 14:02:20Patient is not a candidate for Thrombolytic. Thrombolytic Medical Decision: 04/14/2025 14:02:21Patient was not deemed candidate for Thrombolytic because of following reasons: Use of NOAC in last [address] Head: I personally reviewed all the CT images that were available to me and it showed: no acute findings, chronic infarct noted Primary Provider Notified of Diagnostic Impression and Management Plan on: 04/14/2025 14:08:36 History of Present Illness:Patient is a 85 year old Female. Patient was brought by private transportation with symptoms of falls, dizziness. 85yo woman w/PMH of HTN, HLD, Afib on quis, hypothyroidism p/w falls, dizziness on 04/14/25. She states she tripped over her own feet this morning and fell to the ground, but did not hit her head. She felt normal after that fall, but then at 11:00 she was folding laundry when she developed dizziness and nausea. She tried to sit down but fell again so her brought her to the ED. She otherwise denies complaints. Past Medical History: Other PMH: see hpi Medications: Anticoagulant use:YesEliquis Antiplatelet use:YesPlavix Reviewed EMR for current medications Allergies: Reviewed Social History: Drug Use: No Family History: There is no family history of premature cerebrovascular disease pertinent to this consultation ROS : 14 Points Review of Systems was performed and was negative except mentioned in HPI. Past Surgical History: There Is No Surgical History Contributory To Todays Visit Examination: BP(141/72),Pulse(80),Blood Glucose(143) 1A: Level of Consciousness - Alert; keenly responsive+ 0 1B: Ask Month and Age - Both Questions Right+ 0 1C: Blink Eyes & Squeeze Hands - Performs Both Tasks+ 0 2: Test Horizontal Extraocular Movements - Normal+ 0 3: Test Visual Dorsey - No Visual Loss+ 0 4: Test Facial Palsy (Use Grimace if Obtunded) - Normal symmetry+ 0 5A: Test Left Arm Motor Drift - No Drift for 10 Seconds+ 0 5B: Test Right Arm Motor Drift - No Drift for 10 Seconds+ 0 6A: Test Left Leg Motor Drift - No Drift for 5 Seconds+ 0 6B: Test Right Leg Motor Drift - No Drift for 5 Seconds+ 0 7: Test Limb Ataxia (FNF/Heel-Ramon) - No Ataxia+ 0 8: Test Sensation - Normal; No sensory loss+ 0 9: Test Language/Aphasia - Normal; No aphasia+ 0 10: Test Dysarthria - Normal+ 0 11: Test Extinction/Inattention - No abnormality+ 0 NIHSS Score:0 Pre-Morbid Modified [place] Scale:0 Points = No symptoms at all Spoke with :ED MD This consult was conducted in real time using interactive audio and video technology. Patient was informed of the technology being used for this visit and agreed to proceed. Patient located in hospital and provider located at home/office setting. Patient is being evaluated for possible acute neurologic impairment and high probability of imminent or life-threatening deterioration. I spent total of 35 minutes providing care to this patient, including time for face to face visit via telemedicine, review of medical records, imaging studies and discussion of findings with providers, the patient and/or family. Dr Tino Crook [facility] For Inpatient follow-up with [facility] physician please call [facility] at . As we are not an outpatient service for any post hospital discharge needs please contact the hospital for assistance. If you have any questions for the [facility] physicians or need to reconsult for clinical or diagnostic changes please contact us via [facility] at . Signature :Tino Crook Medical Decision Making 04/14/25 13:49 04/14/25 13:49 Labs: Laboratory Results - last 24 hr 04/14/25 13:49 WBC 11.5 H RBC 3.55 Hgb 10.5 L Hct 31.9 L MCV 90.0 MCH 29.6 MCHC 32.9 L RDW 18.2 H Plt Count 202 MPV 7.3 L Neut % (Auto) 78.0 H Lymph % (Auto) 11.9 L Andrew % (Auto) 9.3 Eos % (Auto) 0.5 L Baso % (Auto) 0.3 Neut # (Auto) 9.0 H Lymph # (Auto) 1.4 Andrew # (Auto) 1.1 H Eos # (Auto) 0.1 Baso # (Auto) 0.0 Absolute Nucleated RBC 0.0
[2025-04-14] MEDS: NS 1,000 ML IV 1,000 ML IV SCH ×2 (14:41→18:11)
--- NOTE | 2025-04-14 15:13 | CT ---
EXAM: CT HEAD WITHOUT CONTRAST HISTORY: MULIPLE fallS, stroke protocol; COMPARISON: None. TECHNIQUE: Axial CT images were obtained through the brain without contrast. All CT scans at this facility use dose modulation, iterative reconstruction, and/or weight based dosing when appropriate to reduce radiation dose to as low as reasonably achievable. FINDINGS: BRAIN: There is mild diffuse atrophy with proportionate enlargement of the cerebral sulci and ventricular system. Decreased attenuation in the periventricular white matter is compatible with but not specific for chronic small vessel ischemic changes. No evidence of acute infarct intra or extraaxial hemorrhage mass effect or hydrocephalus. Encephalomalacia in the right parietal region likely from prior infarct CALVARIUM: Normal ADDITIONAL FINDINGS: The visualized paranasal sinuses and mastoid air cells are clear. Orbits are grossly unremarkable. 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 Diffuse cerebral atrophy. No evidence of acute intracranial injury THIS IS AN ELECTRONICALLY VERIFIED FINAL REPORT 04/14/2025 3:10 PM - Electronically signed by Jurgen Cedillo MD
--- NOTE | 2025-04-14 15:14 | CT ---
EXAM: CT THORACIC SPINE WITHOUT CONTRAST HISTORY: FALL; . COMPARISON: None. TECHNIQUE: Axial CT images were obtained through the thoracic spine without contrast. Coronal and sagittal reformations were post processed. All CT scans at this facility use dose modulation, iterative reconstruction, and/or weight based dosing when appropriate to reduce radiation dose to as low as reasonably achievable. FINDINGS: SPINE: Mild multilevel degenerative changes throughout the thoracic spine. No acute height or alignment abnormality. SURROUNDING SOFT TISSUES: Please see separate dictation of CT chest for findings in the region IMPRESSION: No evidence of acute thoracic spine fracture or malalignment THIS IS AN ELECTRONICALLY VERIFIED FINAL REPORT 04/14/2025 3:11 PM - Electronically signed by Jurgen Cedillo MD
--- NOTE | 2025-04-14 15:15 | CT ---
EXAM: CT LUMBAR SPINE WITHOUT CONTRAST HISTORY: FALL; . COMPARISON: None. TECHNIQUE: Axial CT images were obtained through the lumbar spine without IV contrast. Coronal and sagittal reformations were post processed. All CT scans at this facility use dose modulation, iterative reconstruction, and/or weight based dosing when appropriate to reduce radiation dose to as low as reasonably achievable. FINDINGS: SPINE: Severe multilevel degenerative disc disease is noted. Curvature vertebral body heights and alignment are within normal limits. SURROUNDING SOFT TISSUES: Please refer to separate dictation of CT abdomen for findings in the region IMPRESSION: No evidence of acute injury to the lumbar spine. Multilevel degenerative changes are present THIS IS AN ELECTRONICALLY VERIFIED FINAL REPORT 04/14/2025 3:12 PM - Electronically signed by Jurgen Cedillo MD
--- NOTE | 2025-04-14 15:17 | CT ---
EXAM: CT CHEST WITHOUT CONTRAST HISTORY: RIB PAIN, FALL; COMPARISON: None. TECHNIQUE: Axial CT images were obtained through the chest without contrast. Coronal reformatted images were included. All CT scans at this facility use dose modulation, iterative reconstruction, and/or weight based dosing when appropriate to reduce radiation dose to as low as reasonably achievable. FINDINGS: SUPPORT DEVICES: None HEART, VESSELS, AND MEDIASTINUM: Athero sclerotic disease in the aorta and coronary vessels. Previous CABG LYMPH NODES: No pathologically enlarged nodes. LUNGS AND PLEURA: Lungs show moderate right-sided pleural effusion showing intermediate density which could be related to blood products AIRWAYS: Within normal limits. UPPER ABDOMEN: See separate dictation of CT abdomen for findings in the region BONES: Possible fractures of the right inferior/posterior 11th and 12th ribs. These fractures appear relatively nondisplaced. There is a fracture of the left proximal clavicle IMPRESSION: Moderate right pleural effusion noted. Density of the pleural fluid is intermediate in can be seen with a hemothorax. No definite lung laceration or pneumothorax. There are likely fractures of the right inferior/posterior 11th and 12th ribs as well as an apparent fracture of the left proximal clavicle THIS IS AN ELECTRONICALLY VERIFIED FINAL REPORT 04/14/2025 3:14 PM - Electronically signed by Jurgen Cedillo MD
--- NOTE | 2025-04-14 15:20 | CT ---
EXAM: CT CERVICAL SPINE WITH CONTRAST HISTORY: fall; . COMPARISON: None. TECHNIQUE: Axial CT images were obtained through the cervical spine after intravenous administration of contrast. Coronal and sagittal reformations were post processed. Informed written consent was obtained from the patient prior to contrast administration. All CT scans at this facility use dose modulation, iterative reconstruction, and/or weight based dosing when appropriate to reduce radiation dose to as low as reasonably achievable. FINDINGS: C-SPINE: Moderate multilevel degenerative disc disease is noted. Curvature vertebral body heights and alignment are maintained. Previous fusion hardware at C4-5. SURROUNDING SOFT TISSUES: Within normal limits. LUNG APICES: Age-indeterminate proximal left clavicular fracture which may be in stages of healing IMPRESSION: No evidence of acute fracture in the cervical spine. Previous fusion hardware as above THIS IS AN ELECTRONICALLY VERIFIED FINAL REPORT 04/14/2025 3:16 PM - Electronically signed by Jurgen Cedillo MD
--- NOTE | 2025-04-14 15:21 | CT ---
EXAM: CT ABDOMEN AND PELVIS WITH CONTRAST HISTORY: FALL, ABD PAIN; COMPARISON: None. TECHNIQUE: Axial CT images were obtained through the abdomen and pelvis after the intravenous administration of contrast. Coronal reformatted images were included. Informed written consent was obtained prior to contrast administration. All CT scans at this facility use dose modulation, iterative reconstruction, and/or weight based dosing when appropriate to reduce radiation dose to as low as reasonably achievable. FINDINGS: LOWER THORAX: Right pleural effusion is apparent showing fairly high density is noted on previous CT of the chest ABDOMEN: LIVER: Extensive hepatic cystic disease GALLBLADDER: Gallstones SPLEEN: Within normal limits. PANCREAS: Within normal limits. KIDNEYS: Scattered renal cysts are noted on the right ADRENAL GLANDS: Within normal limits. GI TRACT: Moderate colonic stool. Sigmoid diverticulosis LYMPH NODES: No abnormally enlarged nodes. VESSELS: Moderate diffuse athero sclerotic disease PERITONEUM / RETROPERITONEUM: No free gas. PELVIS: BLADDER: Within normal limits. GENITALS: Within normal limits. BONES: Within normal limits. IMPRESSION: Extensive hepatic cystic disease. Gallstones. No definite acute injury in the abdomen or pelvis THIS IS AN ELECTRONICALLY VERIFIED FINAL REPORT 04/14/2025 3:18 PM - Electronically signed by Jurgen Cedillo MD
--- NOTE | 2025-04-14 15:54 | DR.WEAKNES ---
HPI Time Seen Time Seen by Provider: 04/14/25 14:09 HPI Comment HPI Comment: Patient had episode of dizziness today and fell hitting her back on the table as she went down there was no loss of consciousness. Patient denies any fevers. She does have a history of A-fib and CVA. Patient also has a history of hypothyroidism. Stroke protocol was called on patient's arrival. Patient does take Eliquis and Plavix. Timing Symptom Onset: Known Context Stroke Symptoms: Dizziness PMH PMH Past Medical History: Coronary Artery Disease, Dyslipidemia, GERD, Hypertension, Hypothyroidism and PR Past Surgical History: Yes Surgical History: Angioplasty/Stents, CABG/Valve Surgery, Hysterectomy and Ortho Surgery Family History Family Medical History: Cancer, PR, Coronary Artery Disease and Hypertension Social History Do you use any recreational Drugs:: No Travel Risk Coronavirus risk:travel/contact w/high risk person: No Has patient experienced Coronavirus symptoms: No ROS Review of Systems Constitutional: No Symptoms Reported; negative Fever Eyes: No Symptoms Reported ENTM: No Symptoms Reported Respiratoy: No Symptoms Reported Cardiovascular: No Symptoms Reported; negative Chest Pain, Edema, Palpitations or Syncope Gastrointestinal/Abdominal: No Symptoms Reported Genitourinary: No Symptoms Reported Neurological: See HPI and Dizziness Musculoskeletal: See HPI (Rib pain) Integumentary: No Symptoms Reported Hematologic/Lymphatic: No Symptoms Reported Endocrine: No Symptoms Reported Psychiatric: No Symptoms Reported All Other Systems: Reviewed and Negative PE Vital Signs Vitals: Vital Signs Temperature 97.9 F Pulse Rate 98 Pulse Rate 114 Respiratory Rate 18 Respiratory Rate 16 Blood Pressure 119/64 Blood Pressure 136/84 O2 Sat by Pulse Oximetry 98 O2 Sat by Pulse Oximetry 98 General Limitations: No Limitations General Appearance: Alert and In No Apparent Distress Head Head Exam: Normal Inspection Eyes Eye exam: Normal Appearance Eyelids: Normal Inspection: Bilateral Pupils: Regular, Round: Bilateral Sclera/Conjunctival: Normal Inspection: Bilateral Anterior Chamber: Normal Inspection: Bilateral ENT ENT Exam: Normal Exam Mouth Exam: Normal Inspection Throat Exam: Normal Inspection Neck Neck Exam: Normal Inspection Chest Chest Inspection: Normal Inspection Respiratory Respiratory Exam: Normal Lung Sounds Bilat Respiratory Exam: Bilateral: Clear to Auscultation Cardiovascular Cardiovascular Exam: Regular Rate and Normal Rhythm Abdominal Exam Abdominal Exam: Normal Inspection, Normal Bowel Sounds and Soft Extremities Extremities Exam: Normal Inspection Back Back Exam: Tenderness (ThisRight rib pain over 11 on 12th.) Neurologic Neurological Exam: Alert and Oriented X3 Psychiatric Psychiatric Exam: Normal Affect and Normal Mood Skin Skin Exam: Warm, Dry, Intact and Normal Color COURSE Treatment Treatment: Discussed results of workup with patient and family. Patient to be admitted for observation. Right pleural effusion present, however other than rib pain patient symptomatically is doing very well and consider more likely possible developing pneumonia. We discussed other incidental findings and cysts on the liver for patient to follow-up with her primary care. Consultation Called: 16:04 Consultation Comments: Discussed case with Dr. Jasmine and she is agreeable to admission. ROR Labs Reviewed Laboratory Results Reviewed?: Yes 04/14/25 13:49 04/14/25 13:49 Laboratory: WBC 11.5 X10^3/uL (3.6-10.0) H 04/14/25 13:49 RBC 3.55 X10^6/uL (3.5-5.4) 04/14/25 13:49 Hgb 10.5 g/dL (12.0-16.0) L 04/14/25 13:49 Hct 31.9 % (36.0-47.0) L 04/14/25 13:49 MCV 90.0 fL (80.0-100.0) 04/14/25 13:49 MCH 29.6 pg (27.0-34.0) 04/14/25 13:49 MCHC 32.9 g/dL (33.0-35.0) L 04/14/25 13:49 RDW 18.2 % (11.6-16.5) H 04/14/25 13:49 Plt Count 202 X10^3/uL (150.0-450.0) 04/14/25 13:49 MPV 7.3 fL (7.4-11.0) L 04/14/25 13:49 Neut % (Auto) 78.0 % (42.0-75.0) H 04/14/25 13:49 Lymph % (Auto) 11.9 % (21.0-51.0) L 04/14/25 13:49 Walker % (Auto) 9.3 % (0.0-13.0) 04/14/25 13:49 Eos % (Auto) 0.5 % (0.9-2.9) L 04/14/25 13:49 Baso % (Auto) 0.3 % (0.2-1.0) 04/14/25 13:49 Neut # (Auto) 9.0 x10^3/uL (2.2-4.8) H 04/14/25 13:49 Lymph # (Auto) 1.4 X10^3/uL (1.3-2.9) 04/14/25 13:49 Walker # (Auto) 1.1 x10^3/uL (0.3-0.8) H 04/14/25 13:49 Eos # (Auto) 0.1 x10^3/uL (0.0-0.2) 04/14/25 13:49 Baso # (Auto) 0.0 X10^3/uL (0.0-0.1) 04/14/25 13:49 Absolute Nucleated RBC 0.0 /100WBC 04/14/25 13:49 PT 14.7 SECONDS (11.8-14.3) 04/14/25 13:49 INR Target Range - 04/14/25 13:49 INR 1.13 (0.8-1.3) 04/14/25 13:49 APTT 26.7 SECONDS (22.9-36.5) 04/14/25 13:49 PTT Comment - 04/14/25 13:49 Sodium 131 mmol/L (136-145) L 04/14/25 13:49 Corrected Sodium 133 mmol/L (136-145) L 04/14/25 13:49 Potassium 4.8 mmol/L (3.5-5.1) 04/14/25 13:49 Chloride 98 mmol/L (98-107) 04/14/25 13:49 Carbon Dioxide 26.9 mmol/L (21-32) 04/14/25 13:49 BUN 26 mg/dL (7-18) H 04/14/25 13:49 Creatinine 1.37 mg/dL (0.55-1.02) H 04/14/25 13:49 Est GFR (MDRD) Af Amer 47 (>60) L 04/14/25 13:49 Est GFR (MDRD) Non-Af 39 (>60) L 04/14/25 13:49 Glucose 163 mg/dL (65-99) H 04/14/25 13:49 Calcium 8.9 mg/dL (8.5-10.1) 04/14/25 13:49 Corrected Calcium TNP 04/14/25 13:49 Total Bilirubin 0.30 mg/dL (0.2-1.0) 04/14/25 13:49 AST 26 Units/L (15-37) 04/14/25 13:49 ALT 26 Units/L (12-78) 04/14/25 13:49 Alkaline Phosphatase 83 Units/L (46-116) 04/14/25 13:49 Creatine Kinase 81 Units/L (26-192) 04/14/25 13:49 Troponin I High Sens 21.2 ng/L (4.0-60.0) 04/14/25 13:49 Total Protein 7.5 g/dL (6.4-8.2) 04/14/25 13:49 Albumin 3.9 g/dL (3.4-5.0) 04/14/25 13:49 Globulin 3.6 g/dL (2.5-4.5) 04/14/25 13:49 Albumin/Globulin Ratio 1.1 Ratio (1.1-2.1) 04/14/25 13:49 Triglycerides 97 mg/dL (0-150) 04/14/25 13:49 Cholesterol 160 mg/dL (0-200) 04/14/25 13:49 LDL Cholesterol, Calc 79 mg/dL (0-100) 04/14/25 13:49 HDL Cholesterol 62 mg/dL (40-60) H 04/14/25 13:49 Cholesterol/HDL Ratio 2.6 (0.0-5.0) 04/14/25 13:49 Other Results Comments: Multiple CT scans performed. Please refer to radiologist interpretations EKG Rate: 116 [place]: LAD Rhythm: Junctional Block: RBBB ST: Normal Opioid Opioid Risk Tool Age (Jon box if 16-45): No History of Preadolescent Sexual Abuse: No Total: 0 Total Score Risk Category: Low Risk Copyright: Neal JAIN predicting aberrant behaviors Discharge Plan Diagnosis Discharge Problem: Suspected cerebrovascular accident (CVA), Pleural effusion on right, Fracture of right twelfth rib, Fracture of right eleventh rib, Clavicle fracture Discharge Plan Patient Disposition: ADMITTED INPATIENT Condition: Stable Prescriptions: No Action amiodarone 200 mg tablet 200 mg PO QDAY atorvastatin 40 mg tablet 40 mg PO QDAY primidone 50 mg tablet 100 mg PO QDAY clonazepam 1 mg tablet 1 mg PO QPM clopidogrel 75 mg tablet 75 mg PO QDAY nifedipine 60 mg tablet extended release 24hr 60 mg PO DAILY levothyroxine 50 mcg tablet 50 mcg PO QAM pantoprazole 40 mg tablet,delayed release (DR/EC) 40 mg PO DAILY benazepril 20 mg tablet 40 mg PO QPM Patient Comments: [NO ORIGINAL SIG] Eliquis 2.5 mg tablet 2.5 mg PO BID Health Concerns: Post Hospitalization: new medications and changes needed to prevent readmission or further decline. Pt educated and given instructions on all concerns. Plan of Treatment: Continue with present treatment and follow up plan. Pt is to keep follow up appointment as instructed and take medications as ordered. Orders to Discharge Patient Discharge Orders: Transfer (Routine); Ordered 04/14/25 Ordered By: Abdirashid Tapia Follow ups/Referrals Follow ups/Referrals: Bolivar Sykes [Primary Care Provider, MEDICAL] - 3 days Instructions Stand Alone Forms: Find Help Web Site, Post Hospital Follow Up Care Print Language: TONGAN
[2025-04-14] MEDS: ZOSYN VIAL 3.375 GRAMS 3.375 G in NS 100 ML IV 100 ML IV ONE ×2 (16:14→18:12)
[2025-04-14] MEDS: NS 250 ML IV 25 ML IV PRN (16:14)
[2025-04-14] MEDS: MORPHINE SULFATE INJ 2 MG INJ IVP ONE (16:22)
--- NOTE | 2025-04-14 17:23 | MRI ---
EXAM: MRI OF THE BRAIN HISTORY: Dizziness. Nausea. Falls. TECHNIQUE: Multiplanar (axial, sagittal, and coronal) T1, T2, FLAIR, diffusion, and gradient echo images are obtained through the brain without administration of gadolinium. COMPARISON: Head CT dated April 14, 2025 FINDINGS: There is mild diffuse cerebral cortical atrophy in keeping with the patient's advanced age. There is an approximately 4.1 cm AP by 2.8 cm transverse old right parietal cerebral infarction, marked by parenchymal encephalomalacia. There are innumerable scattered foci of hyperintense FLAIR signal seen within the periventricular white matter tracts of the centrum semiovale, in keeping with chronic sequela of atherosclerotic microvascular ischemic disease. There is no evidence for intraparenchymal mass lesion, hemorrhage, edema, infarction or demyelinating plaque disease seen. The centrum semiovale, basal ganglia, cerebellum and brain stem are otherwise unremarkable. There is no extra-axial mass lesion or abnormal fluid collection seen. No midline shift or other mass effect is evident. No cerebellar tonsillar herniation is identified. There is no ventriculomegaly. The third and fourth ventricles are widely patent. The cerebello-pontine angles and internal acoustic canals are within normal limits. The vestibulocochlear nerves are unremarkable. There is no abnormal fluid signal seen within the temporal bones or mastoid air cells. The paranasal sinuses are clear. No suprasellar mass lesion or optic chiasm compression is observed. The cerebrovascular structures are grossly unremarkable for a nondedicated exam. No gross intra-orbital abnormality is evident. IMPRESSION: 1. No evidence for acute infarction, intracranial hemorrhage, mass lesions, mass effect, or hydrocephalus seen. 2. Approximately 4.1 cm AP by 2.8 cm transverse old right parietal cerebral infarction 3. Extensive chronic microvascular ischemic disease in the periventricular white matter tracts of the centrum semiovale. 4. Diffuse cerebral cortical atrophy. THIS IS AN ELECTRONICALLY VERIFIED FINAL REPORT 04/14/2025 5:20 PM - Electronically signed by Ruperto Lynne MD
[2025-04-14] MEDS ORDERED: NovoLIN R (or HumuLIN R) SUBCUT PRN (17:28)
[2025-04-14] MEDS ORDERED: TYLENOL 325 MG TAB PO PRN (17:28)
[2025-04-14] MEDS ORDERED: NS 250 ML IV 25 ML IV PRN ×2 (17:28→18:42)
[2025-04-14] MEDS ORDERED: NORCO 5/325 MG TAB PO PRN (17:28)
[2025-04-14] MEDS ORDERED: CONSULT PHARMACY - POTASSIUM & MAGNESIUM XX SCH (17:28)
[2025-04-14] MEDS ORDERED: ZOFRAN INJ 4 MG VIAL IVP PRN (17:28)
[2025-04-14] MEDS ORDERED: MORPHINE SULFATE INJ 2 MG INJ IVP PRN (17:28)
[2025-04-14] MEDS ORDERED: ULTRAM PO PRN (17:28)
[2025-04-14] MEDS: OMNIPAQUE 350 mg/mL 100 mL BTL 100 ML ONE (18:11)
[2025-04-14] MEDS: MORPHINE SULFATE INJ 2 MG INJ ONE (18:11)
[2025-04-14] MEDS: KLONOPIN TAB 1 MG PO SCH (20:41)
[2025-04-14] MEDS: ELIQUIS PO SCH (20:41)
[2025-04-14] MEDS: LOTENSIN TAB 10 MG PO SCH (20:41)
[2025-04-14] MEDS: SNACK - Diabetic Appropriate PO SCH (20:44)
[2025-04-14] MEDS: ZOSYN VIAL 3.375 GRAMS 3.375 G in NS 100 ML IV 100 ML IV SCH (23:37)
[2025-04-14 23:55] LABS: BLOOD/HEMOGLOBIN,URINE NEGATIVE (NEGATIVE); LEUKOCYTE ESTERASE ,URINE NEGATIVE (NEGATIVE); NITRITES,URINE NEGATIVE (NEGATIVE)
[2025-04-14 23:57] LABS: APPEARANCE,URINE SLIGHTLY HAZY (CLEAR)
[2025-04-15 05:52] LABS: MEAN PLATELET VOLUME 7.5 fL (7.4-11.0); RED CELL DISTRIBUTION WIDTH 17.9 % (11.6-16.5)
[2025-04-15 06:11] LABS: COR CA(FOR HYPOALB) 9.1 mg/dL (8.5-10.1); COR NA(FOR HYPERGLY) 135.0 mmol/L (136-145); CREATININE 1.26 mg/dL (0.55-1.02); eGFR NON BLACK RACES 43.0 (>60)
[2025-04-15] MEDS ORDERED: CONSULT PHARMACY - POTASSIUM & MAGNESIUM XX SCH (07:00)
--- NOTE | 2025-04-15 08:46 | RAD ---
EXAM: Portable chest HISTORY: Fall COMPARISON: CT chest 04/14/2025 FINDINGS: Patient is status post median sternotomy and CABG. Heart is within normal limits in size. Aorta is calcified and mildly ectatic. Erica are normal. Lungs are well inflated with the exception of some subsegmental atelectasis in the right lung base. Right pleural effusion is present. No pneumothorax identified. Bones are osteopenic. The patient's known lower right rib fractures and left proximal clavicular fracture not well demonstrated on this examination. IMPRESSION: Cardiomegaly without congestive heart failure No acute infiltrates Subsegmental atelectasis right lung base Small right pleural effusion The patient's known rib fractures and left clavicular fracture not well demonstrated on this examination. THIS IS AN ELECTRONICALLY VERIFIED FINAL REPORT 04/15/2025 8:43 AM - Electronically signed by Grant Cramer MD
[2025-04-15] MEDS: K-DUR TAB 20 MEQ PO SCH (09:40)
[2025-04-15] MEDS: PROTONIX TAB 40 MG PO SCH (09:40)
[2025-04-15] MEDS: LIPITOR TAB 40 MG PO SCH (09:40)
[2025-04-15] MEDS: CORDARONE TAB 200 MG PO SCH (09:40)
[2025-04-15] MEDS: PLAVIX PO SCH (09:40)
[2025-04-15 11:23] VITALS: PULSE 115; RESP 19; TEMP 97.7; O2SAT 95
[2025-04-15 11:24] VITALS: BP 92/56
--- NOTE | 2025-04-16 09:50 | DR.SSS ---
SHORT STAY SUMMARY Admission Date Date of Admission: 04/14/25 Discharge Date Discharge Date: 04/15/25 Admission Diagnoses Admission Diagnoses: TIA Discharge Diagnoses Discharge Diagnoses: TIA Chief Complaint Chief Complaint: dizziness History of Present Illness History of Present Illness: Patient is a 85-year-old female with a past medical history of CVA, hypothyroidism, hypertension, hyperlipidemia presenting after having dizzy episode in which she also fell. She was taken to ER for stroke rule out. This morning on exam she is resting comfortably in bed. She denies any focal deficits. She reports feeling better. She does admit admit that the clavicle fracture is an old one and is then followed by her primary care doctor as well as orthopedic. The rib fractures seen on imaging or new and we have discussed that they will just take time for it to heal on its own. Labs/imaging: WBC 5.6, hemoglobin 8.6, platelets 158, sodium 135, potassium 3.7, creatinine 1.26, glucose 127, magnesium 1.5, troponin negative, UA negative, CT of the chest showed a left clavicle fracture and right 11th and 12th ribs fracture. CT abdomen pelvis did show a liver cyst and gallstones. Patient was made aware of the findings. She will follow-up with her primary with this. 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 No new findings. Patient is doing well this morning and is back to baseline. Will discharge patient who is in stable condition. She is instructed to follow-up with her PCP in 1 week. Past Medical History Past Medical History: Coronary Artery Disease, Dyslipidemia, GERD, Hypertension, Hypothyroidism and [place] Additional Medical History: Previous Blood Transfusion Past Surgical History Surgical History: Angioplasty/Stents, CABG/Valve Surgery, Hysterectomy and Ortho Surgery Additional Surgical History: QUADRUPLE BYPASS Allergies Allergies Allergy/AdvReac Type Severity Reaction Status Date / Time No Known Drug Allergies Allergy Verified 04/14/25 14:47 Medications Home Medications: No Known Drug Allergies Allergy (Verified 04/14/25 14:47) Family History Family Medical History: Cancer, [place], Coronary Artery Disease and Hypertension Social History Does patient currently use any type of tobacco product: No Type of Tobacco Use: None Does any household member use tobacco: No Alcohol Use: None Drug Use: None Review of Systems Constitutional: No Symptoms Reported Eyes: No Symptoms Reported ENT: No Symptoms Reported Respiratory: No Symptoms Reported Cardiovascular: No Symptoms Reported Gastrointestinal: No Symptoms Reported Genitourinary: No Symptoms Reported Musculoskeletal: No Symptoms Reported Skin: No Symptoms Reported Neurological: Other (dizziness) Physical Exam Vital Signs: Last Vital Signs Temp 97.6 F 04/15/25 04:00 Pulse 109 H 04/15/25 04:00 Resp 18 04/15/25 04:00 BP 91/53 04/15/25 04:00 Pulse Ox 96 04/15/25 04:00 O2 Del Method Room Air 04/15/25 09:06 Oriented: Normal Eyes: Normal Ear: Normal Nose: Normal Respiratory: Clear Throughout Cardiovascular: Normal : Normal Auscultation: Bowel Sounds: Normal Palpation: Normal Tenderness: Normal Skin: Normal Musculoskeletal: Clavicle Psychiatric: Normal Mood Description: Calm Speech Pattern: Clear Labs Labs: Laboratory Last Values WBC 5.6 X10^3/uL (3.6-10.0) 04/15/25 05:19 RBC 2.82 X10^6/uL (3.5-5.4) L 04/15/25 05:19 Hgb 8.6 g/dL (12.0-16.0) L 04/15/25 05:19 Hct 25.0 % (36.0-47.0) L 04/15/25 05:19 MCV 88.6 fL (80.0-100.0) 04/15/25 05:19 MCH 30.4 pg (27.0-34.0) 04/15/25 05:19 MCHC 34.3 g/dL (33.0-35.0) 04/15/25 05:19 RDW 17.9 % (11.6-16.5) H 04/15/25 05:19 Plt Count 158 X10^3/uL (150.0-450.0) 04/15/25 05:19 MPV 7.5 fL (7.4-11.0) 04/15/25 05:19 Neut % (Auto) 74.5 % (42.0-75.0) 04/15/25 05:19 Lymph % (Auto) 16.0 % (21.0-51.0) L 04/15/25 05:19 [place] % (Auto) 8.6 % (0.0-13.0) 04/15/25 05:19 Eos % (Auto) 0.7 % (0.9-2.9) L 04/15/25 05:19 Baso % (Auto) 0.2 % (0.2-1.0) 04/15/25 05:19 Neut # (Auto) 4.1 x10^3/uL (2.2-4.8) 04/15/25 05:19 Lymph # (Auto) 0.9 X10^3/uL (1.3-2.9) L 04/15/25 05:19 [place] # (Auto) 0.5 x10^3/uL (0.3-0.8) 04/15/25 05:19 Eos # (Auto) 0.0 x10^3/uL (0.0-0.2) 04/15/25 05:19 Baso # (Auto) 0.0 X10^3/uL (0.0-0.1) 04/15/25 05:19 Absolute Nucleated RBC 0.1 /100WBC 04/15/25 05:19 PT 14.7 SECONDS (11.8-14.3) 04/14/25 13:49 INR Target Range - 04/14/25 13:49 INR 1.13 (0.8-1.3) 04/14/25 13:49 APTT 26.7 SECONDS (22.9-36.5) 04/14/25 13:49 PTT Comment - 04/14/25 13:49 Sodium 134 mmol/L (136-145) L 04/15/25 05:19 Corrected Sodium 135 mmol/L (136-145) L 04/15/25 05:19 Potassium 3.7 mmol/L (3.5-5.1) 04/15/25 05:19 Chloride 101 mmol/L (98-107) 04/15/25 05:19 Carbon Dioxide 27.4 mmol/L (21-32) 04/15/25 05:19 BUN 21 mg/dL (7-18) H 04/15/25 05:19 Creatinine 1.26 mg/dL (0.55-1.02) H 04/15/25 05:19 Est GFR (MDRD) Af Amer 52 (>60) L 04/15/25 05:19 Est GFR (MDRD) Non-Af 43 (>60) L 04/15/25 05:19 Glucose 127 mg/dL (65-99) H 04/15/25 05:19 Calcium 8.3 mg/dL (8.5-10.1) L 04/15/25 05:19 Corrected Calcium 9.1 mg/dL (8.5-10.1) 04/15/25 05:19 Magnesium 1.5 mg/dL (2.0-2.9) L 04/15/25 05:19 Total Bilirubin 0.20 mg/dL (0.2-1.0) 04/15/25 05:19 AST 19 Units/L (15-37) 04/15/25 05:19 ALT 17 Units/L (12-78) 04/15/25 05:19 Alkaline Phosphatase 70 Units/L (46-116) 04/15/25 05:19 Creatine Kinase 81 Units/L (26-192) 04/14/25 13:49 Troponin I High Sens 21.2 ng/L (4.0-60.0) 04/14/25 13:49 Total Protein 6.0 g/dL (6.4-8.2) L 04/15/25 05:19 Albumin 3.0 g/dL (3.4-5.0) L 04/15/25 05:19 Globulin 3.0 g/dL (2.5-4.5) 04/15/25 05:19 Albumin/Globulin Ratio 1.0 Ratio (1.1-2.1) L 04/15/25 05:19 Triglycerides 97 mg/dL (0-150) 04/14/25 13:49 Cholesterol 160 mg/dL (0-200) 04/14/25 13:49 LDL Cholesterol, Calc 79 mg/dL (0-100) 04/14/25 13:49 HDL Cholesterol 62 mg/dL (40-60) H 04/14/25 13:49 Cholesterol/HDL Ratio 2.6 (0.0-5.0) 04/14/25 13:49 Specimen Type Clean catch urine 04/14/25 23:45 Urine Color Yellow (YELLOW) 04/14/25 23:45 Urine Appearance Slightly hazy (CLEAR) 04/14/25 23:45 Urine pH 6.0 (5.0 - 8.0) 04/14/25 23:45 Ur Specific [place] 1.015 (1.000-1.030) 04/14/25 23:45 Urine Protein Negative (NEGATIVE) 04/14/25 23:45 Urine Glucose (UA) Negative (NEGATIVE) 04/14/25 23:45 Urine Ketones Negative (NEGATIVE) 04/14/25 23:45 Urine Blood Negative (NEGATIVE) 04/14/25 23:45 Urine Nitrite Negative (NEGATIVE) 04/14/25 23:45 Urine Bilirubin Negative (NEGATIVE) 04/14/25 23:45 Urine Urobilinogen Normal (NORMAL) 04/14/25 23:45 Ur Leukocyte Esterase Negative (NEGATIVE) 04/14/25 23:45 Assessment/Plan (1) Clavicle fracture: (2) Fracture of right eleventh rib: (3) Fracture of right twelfth rib: (4) TIA (transient ischemic attack): Hospital Course Hospital Course: Patient is a 85-year-old female with a past medical history of CVA, hypothyroidism, hypertension, hyperlipidemia presenting after having dizzy episode in which she also fell. She was taken to ER for stroke rule out. This morning on exam she is resting comfortably in bed. She denies any focal deficits. She reports feeling better. She does admit admit that the clavicle fracture is an old one and is then followed by her primary care doctor as well as orthopedic. The rib fractures seen on imaging or new and we have discussed that they will just take time for it to heal on its own. Labs/imaging: WBC 5.6, hemoglobin 8.6, platelets 158, sodium 135, potassium 3.7, creatinine 1.26, glucose 127, magnesium 1.5, troponin negative, UA negative, CT of the chest showed a left clavicle fracture and right 11th and 12th ribs fracture. CT abdomen pelvis did show a liver cyst and gallstones. Patient was made aware of the findings. She will follow-up with her primary with this. 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 No new findings. Patient is doing well this morning and is back to baseline. Will discharge patient who is in stable condition. She is instructed to follow-up with her PCP in 1 week. Discharge Medications Discharge Medications: Prescriptions: Discharge Plan Discharge Plan Patient Disposition: 01 HOME, SELF-CARE Condition: Stable Health Concerns: Post Hospitalization: new medications and changes needed to prevent readmission or further decline. Pt educated and given instructions on all concerns. Care Plan Goals: Problem: Pain/Alteration in Comfort Goal: Improve/ Resolve Pain; Achieve Pain Tolerance Instructions: Take pain medications as prescribed. Contact your primary care provider if your pain is unrelieved or worsens. Follow up with primary care provider as directed. Plan of Treatment: Continue with present treatment and follow up plan. Pt is to keep follow up appointment as instructed and take medications as ordered. Prescriptions: New hydrocodone-acetaminophen 5-325 mg tablet 1 tab PO BID MDD 2 PRN5 Days Qty: 10 0RF Continued amiodarone 200 mg tablet 200 mg PO QDAY atorvastatin 40 mg tablet 40 mg PO QDAY primidone 50 mg tablet 100 mg PO QDAY clonazepam 1 mg tablet 1 mg PO QPM clopidogrel 75 mg tablet 75 mg PO QDAY nifedipine 60 mg tablet extended release 24hr 60 mg PO DAILY levothyroxine 50 mcg tablet 50 mcg PO QAM pantoprazole 40 mg tablet,delayed release (DR/EC) 40 mg PO DAILY benazepril 20 mg tablet 40 mg PO QPM Patient Comments: [NO ORIGINAL SIG] Eliquis 2.5 mg tablet 2.5 mg PO BID Orders to Discharge Patient Discharge Orders: Discharge (Routine); Ordered 04/15/25 Ordered By: Tommy Ivey Follow ups/Referrals Follow ups/Referrals: Bolivar Sykes [Primary Care Provider, MEDICAL] - 04/22/25 10:20 am Instructions Instructions: Fall Prevention in the Home, Adult, [id number], Stroke Prevention, [id number], Warning Signs of a Stroke, Rib Fracture, [id number] Stand Alone Forms: Find Help Web Site, Post Hospital Follow Up Care Print Language: NEPALI
== END 2025-04-15 10:50 | disposition home or self-care (01) ==
LOC: MED/SURG 13:36 → ER 13:36 → MED/SURG 17:20
PROVIDERS: ADMIT Internal Medicine; ATTEND Internal Medicine
DX: E83.42 Hypomagnesemia; R73.09 Other abnormal glucose; Z86.73 Personal history of transient ischemic attack (TIA), and cerebral infarction without residual deficits; J90 Pleural effusion, not elsewhere classified; Z79.01 Long term (current) use of anticoagulants; K80.80 Other cholelithiasis without obstruction; E03.8 Other specified hypothyroidism; S42.034D Nondisplaced fracture of lateral end of right clavicle, subsequent encounter for fracture with routine healing; I25.2 Old myocardial infarction; E78.5 Hyperlipidemia, unspecified; R94.4 Abnormal results of kidney function studies; I10 Essential (primary) hypertension; K76.89 Other specified diseases of liver; Z95.2 Presence of prosthetic heart valve; E87.1 Hypo-osmolality and hyponatremia; R10.84 Generalized abdominal pain; S22.41XA Multiple fractures of ribs, right side, initial encounter for closed fracture; R42 Dizziness and giddiness; R94.31 Abnormal electrocardiogram [ECG] [EKG]; R29.6 Repeated falls; Z95.5 Presence of coronary angioplasty implant and graft; W01.190A Fall on same level from slipping, tripping and stumbling with subsequent striking against furniture, initial encounter; G45.8 Other transient cerebral ischemic attacks and related syndromes; R26.89 Other abnormalities of gait and mobility; I25.810 Atherosclerosis of coronary artery bypass graft(s) without angina pectoris; I48.91 Unspecified atrial fibrillation; Y92.9 Unspecified place or not applicable